=== PATIENT | male | born 1960 | race Caucasian/White ===

== ENCOUNTER 2017-03-27 00:55 | Emergency (ER) | payer MEDICARE, OTHER ==
[~2017-03-27 00:55] MED LIST: BACT800T5 PO; CALC0.25 PO; CEPH500 PO; CLON0.2T PO; DULC5TAB PO; LISI-363 PO; PRIL20CA PO; TOPR100T15 PO; VITA-13 PO; [UNRECOGNIZED DRUG - CODE] SQ
[2017-03-27 00:57] VITALS: BP 148/97; PULSE 75; RESP 16; TEMP 98.9; O2SAT 98
[2017-03-27] MEDS ORDERED: LISI-515 PO (02:18)
[2017-03-27] MEDS ORDERED: CHOL100025 CHEW (02:18)
[2017-03-27] MEDS ORDERED: CLON0.2T PO (02:18)
[2017-03-27] MEDS ORDERED: TOPR100T PO (02:18)
[2017-03-27] MEDS ORDERED: DULC5TAB PO (02:18)
[2017-03-27] MEDS ORDERED: SEVEL800 PO (02:18)
[2017-03-27] MEDS ORDERED: OMEP20TA PO (02:18)
[2017-03-27] MEDS ORDERED: CALC0.25 PO (02:18)
[2017-03-27] MEDS ORDERED: [UNRECOGNIZED DRUG - CODE] SQ (02:18)
--- NOTE | 2017-03-27 02:36 | PD ---
HPI Chief Complaint: Medical Clearance Time Seen by Provider: 02:10 Travel History International Travel<30 days: No Contact w/Intl Traveler<30days: No Traveled to known affect area: No History of Present Illness HPI The patient is a 56 year old male who presents to the [facility] emergency department with a history of right elbow pain and he reports began on Saturday morning when he awakened. He reports that he regularly plays golf, however he denies any known injury to his elbow. 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 He reports that the swelling is along the posterior aspect of the elbow. He reports that there is pain with full extension of the elbow. He denies having any fevers or chills. He reports that he had an AV fistula in the left upper extremity for hemodialysis, however he no longer receives hemodialysis. The patient reports that he was last seen regarding the aneurysm in his right arm by Dr. Su 2 weeks ago. He reports that he was told that the aneurysm is 2 cm and that they will wait until it is 4 cm before they attempt bypass and again. The patient is on peritoneal dialysis. He reports that he was able to complete half of his peritoneal dialysis today before he came in for evaluation. He last took Tylenol for the pain at 11 PM. On review of systems, the patient denies any cough, congestion, neck pain, chest pain, shortness of breath, abdominal pain, diarrhea, or neurologic symptoms. The patient reports that he does suffer with chronic intermittent vomiting. He reports that this usually occurs when he eats too close to administering his peritoneal dialysis. He denies having any worsening or recurrent vomiting. [facility] Past Medical History Narrative Medical The patient's past medical history is significant for chronic renal failure previously on hemodialysis. The patient did have a transplant in 1995 that unfortunately failed in 2009. The patient reports that he's been on peritoneal dialysis for the last 4 years. 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 Su, history of arthritis, hypertension, constipation Blood Disorders: No Dialysis: Yes Diminished Hearing: No Hypertension: Yes Renal Failure: Yes Past Surgical History Narrative Surgical The patient's past surgical history is significant for an AV fistula placement in the right upper extremity with multiple revisions and attempted bypass for aneurysm formation. The patient has a peritoneal dialysis catheter in place, history of coronary artery disease with bypass in March 2016, cholecystectomy, parathyroidectomy, renal transplant Arteriovenous Shunt: Yes (REMOVED 2014) Cardiac Surgery: Yes (BYPASS MARCH 2016) Cholecystectomy: Yes Other Surgery: Yes (parathyroidectomy/ fistula removed from right 2014) Social History Alcohol Use: No Tobacco Use: No Substance Use: No Allergies-Medications (Allergen,Severity, Reaction): Coded Allergies: Nortriptyline (Verified Allergy, Severe, 03/27/17) Reported Meds & Prescriptions Reported Meds & Active Scripts Active Reported Renvela (Sevelamer Carbonate) 800 Mg Tab 800 Mg PO TID Toprol XL (Metoprolol Succinate) 100 Mg Tab 100 Mg PO BID Omeprazole 20 Mg Tab 20 Mg PO DAILY Lisinopril 20 Mg Tab 20 Mg PO DAILY Epogen (Epoetin Tristan) 20,000 Unit/2 Ml Vial 30,000 SQ BIWEEKLY Clonidine (Clonidine HCl) 0.2 Mg Tab 0.2 Mg PO BID Vitamin D3 (Cholecalciferol) 1,000 Unit Chew 1,000 Units CHEW DAILY Calcitriol 0.25 Mcg Cap 0.25 Mcg PO 2XWEEK Dulcolax DR (Bisacodyl) 5 Mg Tabdr 5 Mg PO BID PRN Review of Systems Except as stated in HPI: all other systems reviewed are Neg General / Constitutional: No: Fever Eyes: No: Visual changes HENT: No: Headaches Cardiovascular: No: Chest Pain or Discomfort Respiratory: No: Shortness of Breath Gastrointestinal: No: Abdominal Pain Genitourinary: No: Dysuria Musculoskeletal: Positive: Myalgias, Arthralgias, Limited ROM, Edema, Pain Skin: No Rash Neurologic: No: Weakness Psychiatric: No: Depression Endocrine: No: Polydipsia Hematologic/Lymphatic: No: Easy Bruising Physical Exam Narrative General: The patient is a well-developed well-nourished male in no acute distress. Head and Neck exam: Head is normocephalic atraumatic. Eyes: EOMI, pupils are equal round and reactive to light. Nose: Midline septum with pink mucous membranes Mouth: Dentition unremarkable. Moist mucus membranes. Posterior oropharynx is not erythematous. No tonsillar hypertrophy. Uvula midline. Airway patent. Neck: No palpable lymphadenopathy. No nuchal rigidity. No thyromegaly. Cardiovascular: Regular rate and rhythm without murmurs, gallops, or rubs. Lungs: Clear to auscultation bilaterally. No wheezes, rhonchi, or rales. Abdomen: Soft, without tenderness to palpation in all 4 quadrants of the abdomen. No guarding, rebound, or rigidity. Normal bowel sounds are audible. No tenderness on palpation of McBurney's point. Negative Flores's sign. The patient has a peritoneal dialysis catheter in place in the right lower quadrant of the abdomen that appears to be in good repair without any around signs of infection or erythema. No drainage noted. Extremities: No clubbing, cyanosis, or edema. 2+ pulses in all 4 extremities. No calf tenderness on palpation. On examination of the area of interest, the right elbow the patient is noted to have an area of swelling along the medial aspect with a palpable pulse. The patient denies any swelling at this site. There is no significant tenderness at this site. There is no bruising or expanding hematoma. The patient on examination of the posterior aspect of the elbow is noted to have tenderness on palpation over the olecranon bursa. There is minimal swelling. There is no erythema or ecchymosis. The patient has full range of motion of the elbow, however with extension the patient reports having increased pain posteriorly. He has no pain with supination or pronation. No crepitus. Back: No costovertebral angle tenderness to palpation. Neurologic Exam: Grossly nonfocal. Skin Exam: No rash noted. Intact skin that is warm and dry. Data Data Last Documented VS Vital Signs Date Time Temp Pulse Resp B/P Pulse Ox O2 Delivery O2 Flow Rate FiO2 03/27/17 02:41 16 98 Room Air 03/27/17 00:57 98.9 75 148/97 Orders Electrocardiogram (03/27/17 02:12) Complete Blood Count With Diff (03/27/17 02:12) Comprehensive Metabolic Panel (03/27/17 02:12) Prothrombin Time / Inr (Pt) (03/27/17 02:12) Act Partial Throm Time (Ptt) (03/27/17 02:12) C-Reactive Protein (Crp) (03/27/17 02:12) Iv Access Insert/Monitor (03/27/17 02:12) Ecg Monitoring (03/27/17 02:12) Oximetry (03/27/17 02:12) Potassium Chloride (Kcl) (03/27/17 03:45) Elbow, Complete (4 Vws) (03/27/17 03:34) Ice/Cold Pack (03/27/17 03:34) Ct Elbow W/O Contrast (03/27/17 ) Acetaminophen (Tylenol) (03/27/17 03:45) Labs Laboratory Tests Test 03/27/17 02:37 White Blood Count 6.9 TH/MM3 Red Blood Count 3.19 MIL/MM3 Hemoglobin 10.2 GM/DL Hematocrit 29.9 % Mean Corpuscular Volume 93.7 FL Mean Corpuscular Hemoglobin 32.0 PG Mean Corpuscular Hemoglobin 34.2 % Concent Red Cell Distribution Width 16.4 % Platelet Count 176 TH/MM3 Mean Platelet Volume 7.5 FL Neutrophils (%) (Auto) 60.9 % Lymphocytes (%) (Auto) 23.2 % Monocytes (%) (Auto) 12.6 % Eosinophils (%) (Auto) 2.9 % Basophils (%) (Auto) 0.4 % Neutrophils # (Auto) 4.2 TH/MM3 Lymphocytes # (Auto) 1.6 TH/MM3 Monocytes # (Auto) 0.9 TH/MM3 Eosinophils # (Auto) 0.2 TH/MM3 Basophils # (Auto) 0.0 TH/MM3 CBC Comment DIFF FINAL Differential Comment Prothrombin Time 10.7 SEC Prothromb Time International 1.0 RATIO Ratio Activated Partial 28.2 SEC Thromboplast Time Sodium Level 138 MEQ/L Potassium Level 2.9 MEQ/L Chloride Level 98 MEQ/L Carbon Dioxide Level 28.2 MEQ/L Anion Gap 12 MEQ/L Blood Urea Nitrogen 42 MG/DL Creatinine 15.40 MG/DL Estimat Glomerular Filtration 3 ML/MIN Rate Random Glucose 87 MG/DL Calcium Level 7.3 MG/DL Protein Corrected Calcium 7.6 MG/DL Total Bilirubin 0.5 MG/DL Aspartate Amino Transf 11 U/L (AST/SGOT) Alanine Aminotransferase 14 U/L (ALT/SGPT) Alkaline Phosphatase 45 U/L C-Reactive Protein 1.59 MG/DL Total Protein 6.5 GM/DL Albumin 2.6 GM/DL MDM Medical Decision Making Medical Screen Exam Complete: Yes Emergency Medical Condition: Yes Medical Record Reviewed: Yes Differential Diagnosis Gout, versus arthritis, versus bursitis, versus septic joint Narrative Course During the course of the patients emergency department visit, the patients history, examination, and differential diagnosis were reviewed with the patient. The patient had IV access obtained and blood work sent for analysis. The patient states on a monitoring specialist with oximetry and blood pressure monitoring. An ECG was done on arrival. The patient's ECG reveals sinus rhythm with a heart rate of 64, marked left axis deviation is noted, right bundle branch block is noted, QRS duration is 158 ms, QTc is 490 ms. There is no acute ST segment elevation. T waves are inverted in V1, lead 3. A CT scan of the right elbow and x-ray of the right elbow has been ordered to further evaluate. The patient was initially provided Tylenol for pain as he reports that any other narcotic pain medication constipate him. m The patients laboratory studies were reviewed and remarkable for a a white count of 6.9, hemoglobin 10.2, platelets 176 with monocytes 12.6, CMP is remarkable for a potassium of 2.9, BUN 42, creatinine 15.4, calcium 7.3, glucose 87, AST 11, C-reactive protein 1.59, albumin 2.6. PT 10.7, PTT 28.2. The patient was given a small supplemented 20 mEq by mouth 1 as the patient will be going home to complete his peritoneal dialysis which could further decreased level. Radiology studies were reviewed and remarkable for an x-ray of the right elbow that shows no fracture or joint dislocation, CT scan of the right elbow reveals focal aneurysmal dilatation of the AV fistula site measuring 2.9 cm, bony structures are grossly intact, No other acute findings. The patient's symptoms are likely related to a bursitis versus gout. The patient has a history of renal failure, therefore anti-inflammatory pain medications would be contraindicated. I will prescribe a Medrol Dosepak taper. The patient will take Tylenol as needed for discomfort. The patient was instructed regarding the importance of close follow-up with his primary care physician in the next 2 days. The patient is resting comfortably and feels better, is alert and in no distress. The patients results and examination findings were discussed with the patient. The repeat examination is unremarkable and benign. The history, exam, diagnostic testing, and current condition do not suggest any significant pathology to warrant further testing, continued ED treatment, admission, or surgical evaluation at this point. The vital signs have been stable. The patient does not have uncontrollable pain, intractable vomiting, or other significant symptoms. The patient's condition is stable and appropriate for discharge. The patient will pursue further outpatient evaluation with a primary care physician or other designated or consulting physician as indicated in the discharge instructions. The patient expressed understanding and was agreeable with this plan. Diagnosis Primary Impression: Right elbow pain Referrals: Primary Care Physician 2 days Patient Instructions: Elbow Bursitis (ED), General Instructions Additional Instructions: The patient is instructed to take Tylenol as needed for discomfort as written on the package. Med/Other Pt SpecificInfo: Prescription(s) given Scripts Methylprednisolone Dosepak (Medrol Dosepak)4 Mg Dspk4 Mg PO DIRECTED #1 DSPK Ref 0 Per Pharmacist direction Prov:Mehnaz Hartmann MD 03/27/17 Disposition: 01 DISCHARGE HOME Condition: Stable Mehnaz Hartmann MD Mar 27, 2017 02:36
[2017-03-27 02:41] VITALS: RESP 16; O2SAT 98
[2017-03-27 02:51] LABS: AUTOMATED NEUTROPHIL # 4.2 TH/MM3 (1.8-7.7); BASOPHIL % 0.4 % (0.0-2.0); EOSINOPHIL # 0.2 TH/MM3 (0-0.4); EOSINOPHIL % 2.9 % (0.0-4.0); HEMATOCRIT 29.9 % (39.0-51.0); HEMO FLAGS DIFF FINAL; LYMPH % 23.2 % (9.0-44.0); LYMPHOCYTE # 1.6 TH/MM3 (1.0-4.8); MEAN CELL VOLUME 93.7 FL (80.0-100.0); MEAN CORPUSCULAR HGB CONC 34.2 % (32.0-36.0); MONO % 12.6 % (0.0-8.0); NEUT % 60.9 % (16.0-70.0); PLATELET COUNT 176 TH/MM3 (150-450); RED BLOOD COUNT 3.19 MIL/MM3 (4.50-5.90); RED CELL DISTRIBUTION WIDTH 16.4 % (11.6-17.2); WHITE BLOOD COUNT 6.9 TH/MM3 (4.0-11.0)
[2017-03-27 03:01] LABS: APTT (PATIENT) 28.2 SEC (24.3-30.1); PROTHROMBIN TIME - PATIENT 10.7 SEC (9.8-11.6)
[2017-03-27 03:06] LABS: BICARBONATE 28.2 MEQ/L (21.0-32.0); CALCIUM-PROTEIN CORRECTED 7.6 MG/DL (8.5-10.1); TOTAL BILIRUBIN ADULT 0.5 MG/DL (0.2-1.0)
[2017-03-27 03:19] LABS: POTASSIUM 2.9 MEQ/L (3.5-5.1)
[2017-03-27] MEDS ORDERED: ACETAMINOPHEN 325 MG TAB PO ONE (03:45)
[2017-03-27] MEDS ORDERED: POTASSIUM CHLORIDE 20 MEQ CONTROLLED RELEASE TAB PO ONE (03:45)
[2017-03-27 04:00] VITALS: BP 140/90; PULSE 70; RESP 18; O2SAT 98
--- NOTE | 2017-03-27 04:26 | RADRPT ---
EXAM DATE/TIME: 03/27/2017 03:47 [facility] COMPARISON: No previous studies available for comparison. INDICATIONS : Right elbow pain. MEDICAL HISTORY : Hypertension. Renal failure. Dialysis SURGICAL HISTORY : Cholecystectomy. AV fistula, right arm. Renal transplant. Parathyroidectomy ENCOUNTER: Initial ACUITY: 1 day PAIN SCORE: 9/10 LOCATION: Right upper extremity FINDINGS: Multiple view examination of the right elbow demonstrates no evidence of acute fracture or joint disl ocation. Postsurgical changes are seen in the soft tissues characteristic of an AV fistula. No defini te joint effusion. CONCLUSION: No acute fracture or joint dislocation. Edgar Castro MD on March 27, 2017 at 4:23 Board Certified Radiologist. This report was verified electronically.
--- NOTE | 2017-03-27 04:31 | RADRPT ---
EXAM DATE/TIME: 03/27/2017 04:07 [facility] COMPARISON: ELBOW RIGHT COMPLETE (4 VWS), March 27, 2017, 3:47. INDICATIONS : Patient has pain and swelling on right elbow, evaluate for aneurysm. RADIATION DOSE: 12.11 CTDIvol (mGy) MEDICAL HISTORY : Hypertension. Dialysis. Renal failure. SURGICAL HISTORY : None. AV fistula, right arm. ENCOUNTER: Initial ACUITY: 3 days PAIN SCALE: 6/10 LOCATION: Right elbow. TECHNIQUE: Volumetric scanning of the elbow was performed. Using automated exposure control and adjustment of t he mA and/or kV according to patient size, radiation dose was kept as low as reasonably achievable to obtain optimal diagnostic quality images. DICOM format image data is available electronically for r eview and comparison. FINDINGS: BONES: No evidence of fracture. Alignment is within normal limits. JOINTS: No evidence of joint narrowing or effusion. SOFT TISSUES: Postsurgical changes characteristic of an AV fistula. There is some focal dilatation of a vascular st ructure at the level of the antecubital fossa measuring 2.9 cm in diameter. The wall is partially zaire cified suggesting that this may be arterial aneurysmal dilatation. Calcified atherosclerotic changes are seen in the patient's [place] vessels. CONCLUSION: 1. Focal aneurysmal dilatation at the AV fistula site measuring 2.9 cm. 2. The bony structures are grossly intact. Edgar Castro MD on March 27, 2017 at 4:25 Board Certified Radiologist. This report was verified electronically.
[2017-03-27] MEDS ORDERED: MEDR4PAK PO (05:41)
--- NOTE | 2017-03-27 08:45 | EKG ---
Date Performed: 03/27/2017 Time Performed: 02:32:50 PTAGE: 56 years EKG: Sinus rhythm WITH FIRST DEGREE AV BLOCK MARKED LEFT AXIS DEVIATION RIGHT BUNDLE BRANCH BLOCK ABNORMAL ECG PREVIOUS TRACING : 08/10/2010 07.44 DOCTOR: Eliel Oconnor Interpretating Date/Time 03/27/2017 08:43:54
== END 2017-03-27 06:46 | disposition home or self-care (01) ==
LOC: NEPC 00:55
DX: M25.521 Pain in right elbow (principal); I45.10 Unspecified right bundle-branch block; I44.0 Atrioventricular block, first degree; R94.31 Abnormal electrocardiogram [ECG] [EKG]; I10 Essential (primary) hypertension; N19 Unspecified kidney failure; Z99.2 Dependence on renal dialysis; Z79.899 Other long term (current) drug therapy; Z88.8 Allergy status to other drugs, medicaments and biological substances
CPT/HCPCS: 73080; 73200; 80053; 85025; 85610; 85730; 86140; 93005; 99285

== ENCOUNTER 2017-06-24 11:16 | Day surgery (SDC) | payer MEDICARE, OTHER ==
[~2017-06-24 11:16] MED LIST changes: -BACT800T5 PO; -CEPH500 PO; +CHOL100025 CHEW; -LISI-363 PO; +LISI-515 PO; +MEDR4PAK PO; +OMEP20TA PO; -PRIL20CA PO; +SEVEL800 PO; +TOPR100T PO; -TOPR100T15 PO; -VITA-13 PO; +[UNRECOGNIZED DRUG - CODE] SQ; -[UNRECOGNIZED DRUG - CODE] SQ
[2017-06-24] MEDS ORDERED: IOHEXOL 350 MG/ML 100 ML BTL (for Cath Lab) OTHER ONE (11:17)
--- NOTE | 2017-06-24 12:18 | PD.VS.PN ---
Pre-operative Note Pre-operative diagnosis: R UE hematoma Planned procedure: R UE angiogram Interval History: Pt doing well, ready for surgery Labs: pending Blood: none needed Imaging: to make in OR Orders: NPO Post-operative destination: DOCU Operative site marked: Yes Consent: Informed consent has been obtained from Go Monet. I have explained the procedure in detail and discussed the risks, benefits, and potential complications. All questions have been answered. Cornel Osborn MD Jun 24, 2017 12:18
[2017-06-24] MEDS ORDERED: MIDAZOLAM HCL 2 MG/2 ML VIAL ONE (12:30)
[2017-06-24 12:31] LABS: AUTOMATED NEUTROPHIL # 5.3 TH/MM3 (1.8-7.7); BASOPHIL % 0.5 % (0.0-2.0); EOSINOPHIL # 0.3 TH/MM3 (0-0.4); EOSINOPHIL % 4.1 % (0.0-4.0); HEMATOCRIT 31.5 % (39.0-51.0); HEMO FLAGS DIFF FINAL; LYMPH % 21.3 % (9.0-44.0); LYMPHOCYTE # 1.8 TH/MM3 (1.0-4.8); MEAN CORPUSCULAR HEMOGLOBIN 31.8 PG (27.0-34.0); MEAN CORPUSCULAR HGB CONC 33.4 % (32.0-36.0); MONO % 10.4 % (0.0-8.0); NEUT % 63.7 % (16.0-70.0); PLATELET COUNT 257 TH/MM3 (150-450); RED BLOOD COUNT 3.32 MIL/MM3 (4.50-5.90); RED CELL DISTRIBUTION WIDTH 14.1 % (11.6-17.2); WHITE BLOOD COUNT 8.4 TH/MM3 (4.0-11.0)
[2017-06-24 12:35] VITALS: BP 142/96; PULSE 64; RESP 18; TEMP 98.2; O2SAT 99
[2017-06-24] MEDS ORDERED: HEPARIN-NS/PF INJ 1,000 ML ONE (12:35)
[2017-06-24 12:58] LABS: BICARBONATE 26.5 MEQ/L (21.0-32.0)
[2017-06-24 13:00] LABS: POTASSIUM 2.8 MEQ/L (3.5-5.1)
--- NOTE | 2017-06-24 13:07 | HHI.PR ---
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 Patent brachial-brachial bypass 2. Distal anastomotic pseudoaneurysm Complications: none Specimen(s) removed: none Estimated blood loss: 10mL Anesthesia: MAC Drains: None Patient to: Other (DOCU) Patient Condition: Good Implant/Devices: SEE IMPLANT LOG (if applicable) Date/Time of Procedure: SEE SURGICAL CARE RECORD Cornel Osborn MD Jun 24, 2017 13:07
--- NOTE | 2017-06-24 13:15 | CATHPROC ---
[employer] HIS Report Study Information Study Number Admission Scheduled Start Study Start [id number] Jun 24 2017 11:16AM 06/24/2017 Jun 24 2017 11:57AM [facility] Endovascular Study Admit Source Facility Department Other [facility] - Extract Operator Physician and Clinical Staff Initial Cornel Bowers Weblogic Administrator Tim Berrios,RN Recorder Janina Cevallos,RT(R) (BS) Scrub Dereck Sanchez,RT(R) Procedures Performed Procedure Location (Site) Vessel Name Aortic Arch Wire insertion Fem Art (right) Femoral Art Equipment Time Skin Care Consultant Description Size Mfg Part Number Used/Scraped [id number] 12:05 ANGIO-DYNAMICS OMNI FLUSH 65CM CATHETER FR 4 Used *[id number]- INTRODUCER SET, 12:05 [employer]. FR 5 SC-NT-U-SST Used MICROPUNCTURE, STIFFENED *[id number] *[id number] 12:59 DAIG/ST. FIOR MEDICAL ANGIOSEAL, FR6 VIP FR 6 Used *[id number] 12:05 Legal Shine INDUSTRIES PACK, CCL CUSTOM * Used *[id number] 12:05 MERIT MEDICAL PRESSURE TUBING 48" 48" [id number] Used [id number] 12:05 NAMIC TUBING, HIGH PRESSURE 20" 20" Used *[id number] 12:05 NYCOMED OMNIPAQUE, 300 MG, 150ML 150ML [id number] Used 12:05 [employer]COMED OMNIPAQUE, 300 MG, 50ML 50ML [id number] Used [id number] 12:05 [employer],WARM AIR CCL * Used *[id number] 12:05 TERUMO MEDICAL SHEATH, FR4 TERUMO (10CM) FR 4 Used *[id number] 12:44 TERUMO MEDICAL/LEILANI CATHETER, FR5 ANGLED 100CM FR 5 [id number] *[id number] Used WIRE, ANGLED GLIDE .035 [id number] 12:05 TERUMO MEDICAL/LEILANI 260CM Used 260CM *[id number] History: Allergies Allergy Reaction nortriptyline Medication Medication Total Dose (Bolus/Oral) Medication Total Dosage/Unit 1% XYLOCAINE 20 mL FENTANYL 50 mcg VERSED 2 mg Medications (Bolus/Oral) Medication Time Given Dosage/Unit Administered By Reason 06/24/2017 12:35:50 VERSED 2 mg Tim Berrios PM 2 mg VERSED given in lab by Tim Berrios RN in Left Antecubital via Peripheral IV. 06/24/2017 12:36:24 FENTANYL 25 mcg Tim Berrios PM 25 mcg FENTANYL given in lab by Tim Berrios RN in Left Antecubital via Peripheral IV. 06/24/2017 12:40:08 1% XYLOCAINE 20 mL Cornel Osborn PM 20 mL 1% XYLOCAINE given in lab by Cornel Osborn in Right Groin via Subcutaneous. 06/24/2017 12:45:38 FENTANYL 25 mcg Tim Berrios PM 25 mcg FENTANYL given in lab by Tim Berrios RN in Left Antecubital via Peripheral IV. Medication (Drip) Medication Time Given Dosage/Unit Concentration/Unit Diluent (ml) Solution 06/24/2017 12:20:01 IV Solutions 0 mL (IV) 500 NaCl .9 PM IV Solutions given in lab by Tim Berrios RN in Left Antecubital via Peripheral IV. Pump/Drip Flow = 20 ml/hr using NaCl .9. Initial Case Assessment Cardiovascular HR Rhythm NIBP 64 reg 146/97 Edema Present Skin color Skin None Normal Warm Dry Circulatory - Right Pulses Femoral 2 Scale (0,1,2,3,4,d) Scale (0,1,2,3,4,d) Circulatory - Lower Extremities Color Lower Right Color Lower Left Normal Normal Neurological State Oriented to time-place- Alert Moves all extremities person Respiration - General Respiration Rate SpO2 (%) (B/min) 17 100 Chronological Log Time Study Chronological Log 12:19:30 Patient arrived via Bed. 12:19:38 Patient Name, D.O.B, / Armband Verified By R.N. 12:19:40 Consent signed by the physician and the patient and verified by the Extract Operator staff. 12:19:44 Pre-op and post- op instructions given; patient acknowledges understanding of instructions. 12:19:45 Verbal Stimulation=2 Physical Stimulation=2 Airway=2 Respiration=2 TOTAL=8. (0=absent, 1=li mited, 2=present) 12:19:48 Presedation assessment performed by Extract Operator RN. 12:19:53 Patient has been NPO for More than 6Hrs. 12:19:54 Skin Breakdown none per pt 12:19:56 Patient Warmer Placed on the Table. 12:19:59 Fred Prominences Protected 12:20:00 A # 20 IV was noted in the Antecubital (left). Grade = 0 IV Solutions given in lab by Tim Berrios RN in Left Antecubital via Peripheral IV. Pump/Drip Flow = 20 ml/hr using 12:20:01 NaCl .9. 12:20:02 History and physical on the chart or being dictated. Assessment: Initial Case, HR=64 BPM, Rhythm=reg, XDWD=934/97 mmhg, Edema=None, Color=Normal, Sk in = Warm, Dry Right Pulses: Femoral=2 12:20:06 Lower Right Extremities: Color=Normal Lower Left Extremities: Color=Normal Neurological: State=Alert, Ox3, AMADOR Respiration: Resp=17 B/min, QbY0=303 % Vitals capture started with the following parameters, Patient=Adult, Interval=5 min, Initial Pr gxtena=487 mmHg, 12:26:22 Deflation Rate=5 mmHg Vitals capture started with the following parameters, Patient=Adult, Interval=5 min, Initial Pr anyjri=285 mmHg, 12:29:15 Deflation Rate=5 mmHg 12:29:49 HR=62 bpm, YKPV=182/97 mmhg, ItZ6=785.0 %, Resp=7 B/min, Pain=0, Yamel=10, Marroquin=2 12:32:32 Reference ECG taken 12:34:50 HR=63 bpm, EFKN=806/95 mmhg, QxS9=153.0 %, Resp=10 B/min, Pain=0, Yamel=10, Marroquin=2 12:35:25 Right groin prepped with 2% chlorhexidine, and draped after a 3 min. waiting time. 12:35:50 2 mg VERSED given in lab by Tim Berrios RN in Left Antecubital via Peripheral IV. 12:36:24 25 mcg FENTANYL given in lab by Tim Berrios RN in Left Antecubital via Peripheral IV. 12:39:53 HR=64 bpm, EGVV=762/93 mmhg, TyC2=614.0 %, Resp=15 B/min, Pain=0, Yamel=10, Marroquin=2 Time Out. Correct patient, correct procedure, correct physician, power injector loaded, with co ntrast with surgical team 12:39:57 present. Time Out Concurred by MD and individual staff in procedure. 12:40:06 Case Start 12:40:08 20 mL 1% XYLOCAINE given in lab by Cornel Osborn in Right Groin via Subcutaneous. 12:41:08 Access site was Right Femoral Artery. A INTRODUCER SET, MICROPUNCTURE, STIFFENED FR 5 was advanced into the Fem Art (right) using the 12:41:13 Percutaneous technique. A SHEATH, FR4 TERUMO (10CM) FR 4 was exchanged in the Fem Art (right). This was necessary in or elaine to 12:41:20 accomodate a larger catheter. A PIGTAIL STR. INFINITI CATHETER FR 5 was advanced over a wire. OMNIPAQUE, 300 MG, 150ML 150ML was used for 12:44:47 injections. 12:44:52 HR=61 bpm, WELV=285/94 mmhg, IhJ8=220.0 %, Resp=13 B/min, Pain=0, Yamel=10, Marroquin=2 12:45:38 25 mcg FENTANYL given in lab by Tim Berrios RN in Left Antecubital via Peripheral IV. Through a PIGTAIL STR. INFINITI CATHETER FR 5, The Aortic Arch was injected at 20 ml/sec for a total of 10 cc's of 12:46:03 contrast. 12:46:44 A WIRE, ANGLED GLIDE .035 260CM 260CM was inserted via Fem Art (right). After removing the current catheter a CATHETER, FR5 ANGLED 100CM FR 5 was advanced over a WIRE, ANGLED 12:47:15 GLIDE .035 260CM 260CM. 12:49:51 HR=58 bpm, XIPF=753/90 mmhg, ErP6=337.0 %, Resp=4 B/min, Pain=0, Yamel=10, Marroquin=2 12:54:34 Injections continued to right arm. 12:54:52 HR=64 bpm, OIVB=605/95 mmhg, DoY5=484.0 %, Resp=10 B/min, Pain=0, Yamel=10, Marroquin=2 12:58:02 Catheter was removed 12:58:43 ANGIOSEAL, FR6 VIP FR 6 placement in the Fem Art (right) 12:59:51 HR=71 bpm, GBJP=503/92 mmhg, SpO2=99.0 %, Resp=19 B/min, Pain=0, Yamel=10, Amrroquin=2 13:00:01 Case End 13:01:32 Sterile dressing applied to site 13:01:37 Catheter(s) removed without difficulty 13:02:38 No case complications noted. 13:02:40 Cine recording checked. 13:02:45 Bedside Report will be given. 13:02:46 Implantable Device card placed in patient's chart. 13:02:48 Contrast Scanned 13:06:58 Patient moved to stretcher End Study - Contrast Media Used In Study Contrast Total Opened (mL) Total Used (mL) Total Wasted (mL) Omnipaque 55 55 0 End Study - Radiation Exposure Fluoro Time (minutes) 5.0 End Study - Patient Disposition Complications Transferred To Interventional Outcome No Extract Operator Holding No attempt made
--- NOTE | 2017-06-25 08:36 | MP ---
cc: CORNEL OSBORN MD DATE OF SURGERY: 06/24/2017 PREOPERATIVE DIAGNOSIS Right upper extremity aneurysm, status post multiple arteriovenous fistulas. POSTOPERATIVE DIAGNOSIS Right upper extremity aneurysm, status post multiple arteriovenous fistulas. PROCEDURE 1. Thoracic aortogram. 2. Right upper extremity angiogram. 3. Right common femoral artery Angio-Seal. ATTENDING SURGEON Cornel Osborn. ANESTHESIA Local with sedation. INDICATIONS Mr. Monet is a young man who has multiple right upper extremity arteriovenous fistulas and apparently a brachial artery bypass done for what sounds like a bleeding pseudoaneurysm. He presents to my clinic with an obvious pseudoaneurysm that appears to be at his antecubital brachial artery. Because of his multiple right upper extremity surgeries a diagnostic angiogram is offered and performed in an effort to map his reconstructive options. There is no prior catheter-based imaging available for my review. DESCRIPTION OF PROCEDURE Informed consent was obtained from the patient. He was taken to the operating room and placed supine on the operating table. An appropriate timeout was taken to ensure the patient's identity, operative site and planned procedure. The administration of antibiotics was not necessary as this is a clean procedure without planned implantation of any foreign object. Everyone in the room agreed with the timeout and we proceeded. His bilateral groins are prepped and draped and right groin anesthetized with 1% lidocaine. A 21-gauge micropuncture needle was used to access the right common femoral artery. This was exchanged using Seldinger technique for a micropuncture sheath through which a 0.035 Glidewire was introduced. The micropuncture sheath was exchanged for a 5 Urdu sheath and the Glidewire was advanced to the ascending aorta. A pigtail catheter was placed over this and a thoracic aortogram was obtained. The Glidewire was introduced and the pigtail catheter was exchanged for a vertebral catheter and using the Glidewire and pigtail catheter we were able to navigate into the innominate, subclavian, axillary and proximal brachial arteries. A right upper extremity angiogram was obtained. The wire, catheter and sheath were removed and the groin was closed with Angio-Seal. There were no complications. I was present and scrubbed for the entire procedure. INTERPRETATION OF IMAGES The patient has patient three-vessel aortic arch without any hemodynamically significant stenoses. The patient's innominate, proximal, subclavian and axillary arteries are dilated but there is no hemodynamically significant stenoses. The patient appears to have a [id number] bypass with a distal brachial artery pseudoaneurysm. Distal to the pseudoaneurysm there is a segment of brachial artery before the brachial trifurcation. MD BINDU Diaz/JESSICA /9:21 PM /8:23 AM
== END 2017-06-24 16:00 | disposition home or self-care (01) ==
LOC: HDOC 11:16 → HDIC 11:17 → HDOC 16:00
PROVIDERS: ATTEND Surgery
DX: I72.1 Aneurysm of artery of upper extremity (principal); N18.6 End stage renal disease; I12.0 Hypertensive chronic kidney disease with stage 5 chronic kidney disease or end stage renal disease; Z99.2 Dependence on renal dialysis
CPT/HCPCS: 36217; 75605; 75716; 80048; 85025; C1760; C1769; C1887; C1893; G0269; J1644; J2250; J3010; Q9967

== ENCOUNTER → 2017-07-02 | Outpatient (CLI) | payer MEDICARE, OTHER ==
[~2017-07-02] MED LIST changes: +CALC667C PO; +CLON0.5T PO; +NIFE60TA58 PO
[2017-07-02 12:21] LABS: AUTOMATED NEUTROPHIL # 3.7 TH/MM3 (1.8-7.7); BASOPHIL % 0.6 % (0.0-2.0); EOSINOPHIL # 0.3 TH/MM3 (0-0.4); EOSINOPHIL % 4.8 % (0.0-4.0); HEMATOCRIT 28.7 % (39.0-51.0); HEMO FLAGS DIFF FINAL; LYMPH % 26.1 % (9.0-44.0); LYMPHOCYTE # 1.7 TH/MM3 (1.0-4.8); MEAN CELL VOLUME 94.8 FL (80.0-100.0); MEAN CORPUSCULAR HEMOGLOBIN 32.2 PG (27.0-34.0); MEAN CORPUSCULAR HGB CONC 33.9 % (32.0-36.0); MONO % 9.8 % (0.0-8.0); NEUT % 58.7 % (16.0-70.0); PLATELET COUNT 236 TH/MM3 (150-450); RED BLOOD COUNT 3.03 MIL/MM3 (4.50-5.90); RED CELL DISTRIBUTION WIDTH 13.7 % (11.6-17.2); WHITE BLOOD COUNT 6.3 TH/MM3 (4.0-11.0)
[2017-07-02 12:27] LABS: APTT (PATIENT) 28.6 SEC (24.3-30.1); PROTHROMBIN TIME - PATIENT 11.1 SEC (9.8-11.6)
[2017-07-02 12:32] LABS: BICARBONATE 27.5 MEQ/L (21.0-32.0); POTASSIUM 3.2 MEQ/L (3.5-5.1)
--- NOTE | 2017-07-02 12:52 | RADRPT ---
EXAM DATE/TIME: 07/02/2017 12:34 [place] COMPARISON: No previous studies available for comparison. INDICATIONS : Evaluate for pneumonia, pneumothorax or communicable disease. Pre op right upper extremity bypass. MEDICAL HISTORY : Hypertension. SURGICAL HISTORY : None. ENCOUNTER: Initial ACUITY: 1 day PAIN SCORE: 0/10 LOCATION: Bilateral chest FINDINGS: PA and lateral views of the chest demonstrate the lungs to be symmetrically aerated without evidence of mass, infiltrate or effusion. The cardiomediastinal contours are unremarkable. Osseous structure s are intact. CONCLUSION: No acute cardiopulmonary disease. Kurt Holley MD on July 02, 2017 at 12:50 Board Certified Radiologist. This report was verified electronically.
--- NOTE | 2017-07-02 22:13 | EKG ---
Date Performed: 07/02/2017 Time Performed: 11:39:10 PTAGE: 57 years EKG: Sinus rhythm WITH FIRST DEGREE AV BLOCK BORDERLINE LEFT AXIS DEVIATION RIGHT BUNDLE BRANCH BLOCK ABNORMAL ECG NO PREVIOUS TRACING DOCTOR: Angel Vidal Interpretating Date/Time 07/02/2017 22:12:27
== END ==
LOC: CPRE 11:16
PROVIDERS: ATTEND Surgery
DX: Z01.810 Encounter for preprocedural cardiovascular examination (principal); Z01.811 Encounter for preprocedural respiratory examination; Z01.812 Encounter for preprocedural laboratory examination; I72.1 Aneurysm of artery of upper extremity; N18.6 End stage renal disease; R94.31 Abnormal electrocardiogram [ECG] [EKG]
CPT/HCPCS: 36415; 71020; 80048; 85025; 85610; 85730; 86850; 86900; 86901; 93005

== ENCOUNTER 2017-07-04 06:24 | Inpatient (IN) | payer MEDICARE, OTHER ==
[~2017-07-04] VITALS: Ht 172.7 cm; Wt 81.0 kg
[2017-07-04] VITALS (8 sets, daily range): BP systolic 153–185; BP diastolic 94–115; PULSE 53–92; RESP 18–20; TEMP 97.5–98.4; O2SAT 97–98
[~2017-07-04 06:24] MED LIST changes: -CALC0.25 PO; -MEDR4PAK PO; -NIFE60TA58 PO; -SEVEL800 PO
[2017-07-04] MEDS ORDERED: INSULIN HUMAN REGULAR 1,000 UNITS/10 ML VIAL SQ PRN (06:45)
[2017-07-04] MEDS ORDERED: CHLORHEXIDINE GLUCONATE 2 % 1 PACK (2 CLOTHS) TOPICAL PRN (06:45)
[2017-07-04] MEDS ORDERED: METOPROLOL TARTRATE 25 MG TAB PO PRN (06:45)
[2017-07-04] MEDS ORDERED: SODIUM CHLORID 0.9% 500 ML IV PRN (06:45)
[2017-07-04] MEDS ORDERED: POVIDONE IODINE 5% (ANTISEPSIS KIT) 4 APPLICATIONS EACH NARE PRN (06:45)
[2017-07-04] MEDS ORDERED: LACTATED RINGER'S 1000 ML IV PRN (06:45)
[2017-07-04] MEDS ORDERED: NIFE60TA58 PO (06:57)
[2017-07-04] MEDS ORDERED: BUPIVACAINE HCL PF 0.5% 30 ML VIAL ONE (07:04)
[2017-07-04] MEDS ORDERED: PROTAMINE SULFATE 50 MG/5 ML VIAL ONE (07:04)
[2017-07-04] MEDS ORDERED: HEPARIN SODIUM - IV 10,000 UNITS/10 ML VIAL ONE (07:04)
[2017-07-04] MEDS ORDERED: THROMBIN (TOPICAL) 20,000 UNIT SPRAY KIT ONE (07:05)
[2017-07-04] MEDS ORDERED: VANCOMYCIN HCL 1000 MG VIAL ONE (07:05)
[2017-07-04] MEDS ORDERED: HEPARIN-NS/PF INJ 500 ML ONE (07:05)
--- NOTE | 2017-07-04 07:45 | HHI.HP ---
History of Present Illness Chief Complaint: R brachial artery pseudoaneurysm History of Present Illness 57 yo male with ESRD on PD and R brachial artery pseudoaneurysm. Growing but no ischemic symptoms. Past/Family/Social History Past Medical History ESRD HTN Past Surgical History Multiple R UE AVF and brachial bypasses PD catheter Social History former smoker Family History NC Home Medications Reported Medications Nifedipine ER 24 HR (Nifedipine ER 24 HR) 60 Mg Tab, 60 MG PO DAILY, TAB 0 Refills 07/04/17 Clonazepam (Clonazepam) 0.5 Mg Tab, 0.5 MG PO HS, #60 TAB 0 Refills 07/02/17 Calcium Acetate (Phosphate Bin (Calcium Acetate) 667 Mg Cap, 3 TAB PO TIDAC 07/02/17 Metoprolol Succinate ER 24 HR (Toprol XL) 100 Mg Tab, 100 MG PO BID, #30 TAB 0 Refills 03/27/17 Omeprazole (Omeprazole) 20 Mg Tab, 20 MG PO DAILY, #30 TAB 0 Refills 03/27/17 Lisinopril (Lisinopril) 20 Mg Tab, 20 MG PO HS, #30 TAB 0 Refills 03/27/17 Epoetin Tristan (Epogen) 20,000 Unit/2 Ml Vial, 09384 SQ BIWEEKLY 03/27/17 Clonidine (Clonidine) 0.2 Mg Tab, 0.2 MG PO BID for Blood Pressure Management, # 60 TAB 0 Refills 03/27/17 Cholecalciferol (Vitamin D3) 1,000 Unit Chew, 1000 UNITS CHEW DAILY for Nutritional Supplement, #1 BOTTLE 0 Refills 03/27/[address] (Dulcolax DR) 5 Mg Tabdr, 5 MG PO BID Y for CONSTIPATION, #30 TAB 0 Refills 03/27/17 Discontinued Reported Medications Sevelamer Carbonate (Renvela) 800 Mg Tab, 800 MG PO TID for Control phosphorous levels, #90 TAB 0 Refills 03/27/17 Calcitriol (Calcitriol) 0.25 Mcg Cap, 0.25 MCG PO 2XWEEK for Calcium Supplement , #30 CAP 0 Refills 03/27/17 Discontinued Scripts Methylprednisolone Dosepak (Medrol Dosepak) 4 Mg Dspk, 4 MG PO DIRECTED, #1 DSPK 0 Refills Per Pharmacist direction Prov:Mehnaz Hartmann MD 03/27/17 Coded Allergies: nortriptyline (Verified Allergy, Severe, Hallucinations, 07/04/17) Review of Systems Constitutional: DENIES: Fever, Chills Cardiovascular: DENIES: Chest pain Physical Exam Vitals/I&O Date Time Temp Pulse Resp B/P (MAP) Pulse Ox O2 Delivery O2 Flow Rate FiO2 07/04/17 06:59 97.8 72 18 160/103 (122) 100 Neuro: alert, AMADOR HEENT: NC/AT; anicteric sclera Neck: no JVD Heart: reg rate, no M Lungs: clear B Abdomen: soft, NT Vascular: palpable R UE brachial pseudoaneurysm Caprini VTE Risk Assessment Caprini VTE Risk Assessment: Mod/High Risk (score >= 2) Caprini Risk Assessment Model Point Value = 1 Point Value = 2 Point Value = 3 Point Value = 5 Age 41-60 Minor surgery BMI > 25 kg/m2 Swollen legs Varicose veins or History of unexplained or recurrent spontaneous Oral contraceptives or hormone replacement Sepsis (< 1 month) Serious lung disease, including pneumonia (< 1 month) Abnormal pulmonary function Acute myocardial infarction Congestive heart failure (< 1 month) History of inflammatory bowel disease Medical patient at bed rest Age 61-74 Arthroscopic surgery Major open surgery (> 45 min) Laparoscopic surgery (> 45 min) Malignancy Confined to bed (> 72 hours) Immobilizing plaster cast Central venous access Age >= 75 History of VTE Family history of VTE Factor V Leiden Prothrombin [id number] Lupus anticoagulant Anticardiolipin antibodies Elevated serum homocysteine Heparin-induced thrombocytopenia Other congenital or acquired thrombophilia Stroke (< 1 month) Elective arthroplasty Hip, pelvis, or leg fracture Acute spinal cord injury (< 1 month) Prophylaxis Regimen Total Risk Factor Score Risk Level Prophylaxis Regimen 0-1 Low Early ambulation 2 Moderate Order ONE of the following: *Sequential Compression Device (SCD) *Heparin 5000 units SQ BID 3-4 Higher Order ONE of the following medications: *Heparin 5000 units SQ TID *Enoxaparin/Lovenox 40 mg SQ daily (WT < 150 kg, CrCl > 30 mL/min) *Enoxaparin/Lovenox 30 mg SQ daily (WT < 150 kg, CrCl > 10-29 mL/min) *Enoxaparin/Lovenox 30 mg SQ BID (WT < 150 kg, CrCl > 30 mL/min) AND/OR *Sequential Compression Device (SCD) 5 or more Highest Order ONE of the following medications: *Heparin 5000 units SQ TID (Preferred with Epidurals) *Enoxaparin/Lovenox 40 mg SQ daily (WT < 150 kg, CrCl > 30 mL/min) *Enoxaparin/Lovenox 30 mg SQ daily (WT < 150 kg, CrCl > 10-29 mL/min) *Enoxaparin/Lovenox 30 mg SQ BID (WT < 150 kg, CrCl > 30 mL/min) AND *Sequential Compression Device (SCD) Assessment and Plan Plan R UE brachial aneurysm repair (interposition graft) PACU post-op Discharge Planning [place] [phone] Cornel Osborn MD Jul 04, 2017 07:45
[2017-07-04] MEDS ORDERED: ACETAMINOPHEN 1000 MG/100 ML 100 ML IV ONE (07:49)
[2017-07-04] MEDS ORDERED: MIDAZOLAM HCL 2 MG/2 ML VIAL ONE (07:49)
[2017-07-04] MEDS ORDERED: FAMOTIDINE 20 MG/2 ML VIAL ONE (07:49)
[2017-07-04] MEDS ORDERED: HYDROmorphone HCL 2 MG TAB PO PRN (08:00)
[2017-07-04] MEDS ORDERED: MORPHINE SULFATE 4 MG/ML INJ IV PUSH PRN (08:00)
[2017-07-04] MEDS ORDERED: METOPROLOL TARTRATE 100 MG TAB PO ONE (08:00)
[2017-07-04] MEDS ORDERED: BISACODYL EC 5 MG TABEC PO PRN (08:00)
[2017-07-04] MEDS ORDERED: SODIUM CHLOR 0.9% 250 ML INJ 250 ML ONE (08:54)
--- NOTE | 2017-07-04 10:45 | HHI.PR ---
Immediate Post Op Note Procedure Date: Jul 04, 2017 Pre Op Diagnosis: R brachial pseudoaneurysm Post Op Diagnosis: R brachial pseudoaneurysm Surgeon: Cornel Osborn [place]ault Person(s): Dmitry Gould Procedure: R brachial artery pseudoaneurysm repair with interposition graft (R basilic vein ) Findings: distal anastomotic pseudoaneurysm Additional Information: palpable radial and ulnar pulses at end of case Complications: none apparent Specimen(s) removed: R brachial pseudoaneurysm - not for pathology Estimated blood loss: 75mL Anesthesia: General Drains: None Fluids: 450mL IVF Patient to: PACU Patient Condition: Good Date/Time of Procedure: SEE SURGICAL CARE RECORD Cornel Osborn MD Jul 04, 2017 10:45
[2017-07-04] MEDS ORDERED: *morphine SULFATE 8 MG/ML PERIprocedure ONLY ONE ×2 (11:16→11:37)
[2017-07-04] MEDS ORDERED: DO NOT ADM ANY ANTICOAGULANT DRUGS PRN (11:30)
[2017-07-04] MEDS ORDERED: *HYDROmorphone PF 1 MG VIAL PERIprocedural Use ONLY ONE ×2 (11:50→12:05)
[2017-07-04] MEDS ORDERED: *LABETALOL HCL 100 MG/20 ML VIAL PERIprocedural Use ONLY ONE (12:10)
[2017-07-04] MEDS ORDERED: *ENALAPRILAT 1.25 MG/ML VIAL PERIprocedural Use ONLY ONE (12:12)
[2017-07-04] MEDS ORDERED: hydrALAZINE HCL 20 MG/ML VIAL ONE (13:02)
[2017-07-04] MEDS ORDERED: METOPROLOL TARTRATE 5 MG/5 ML VIAL IV PUSH PRN (13:30)
[2017-07-04] MEDS ORDERED: HEPARIN SODIUM - IV 10,000 UNITS/10 ML VIAL XX PRN (14:00)
[2017-07-04] MEDS ORDERED: SODIUM CHLORIDE 0.9% FLUSH 10 ML FLUSH IV FLUSH PRN (14:00)
[2017-07-04 14:09] LABS: BICARBONATE 26.2 MEQ/L (21.0-32.0); POTASSIUM 3.2 MEQ/L (3.5-5.1)
[2017-07-04] MEDS ORDERED: NIFEdipine 60 MG SUSTAINED RELEASE TAB PO ONE (14:30)
--- NOTE | 2017-07-04 14:43 | PD.CONS ---
HPI Service Nephrology Consult Requested By Dr. Osborn Reason for Consult ESRD Primary Care Physician Ijeoma Tuttle M.D. History of Present Illness 57 year old male with ESRD, Hypertension, admitted for Aneurysm repair right arm AVF, this was done, he has hypertensive urgency and was in ICU, he is awake denies CP, SOB, dizziness. patient does Peritoneal dialysis at night , on 1.25%/ 2.5% 2 L fill volumes, 7 cycles 12 hrs with 2 L midday exchange. Review of Systems Constitutional: COMPLAINS OF: Fatigue Musculoskeletal: COMPLAINS OF: Joint pain, Muscle aches Past Family Social History Allergies: Coded Allergies: nortriptyline (Verified Allergy, Severe, Hallucinations, 07/04/17) Past Medical History Hypertension ESRD AVF PD catheter Anemia HPTH Past Surgical History AVF Tenkhoff catheter Reported Medications Nifedipine SR 60 mg daily Clonidine 0.2 mg BID Toprol XL 100 mg bid Lisinopril 20 mg daily Klonipin0.5 mg q hs Epogen 8000 units twice a month Omeprazole 20 mg daily PhosLo 667 mg 3 TID with meals Active Ordered Medications Current Medications Medications (Trade) Dose Ordered Sig/Kike Route Start Time Stop Time Status Last Admin Lactated Ringer's 1,000 ml @ 30 mls/hr Q24H PRN IV 07/04/17 06:45 07/07/17 06:44 Sodium Chloride 500 ml @ 30 mls/hr [id number] PRN IV 07/04/17 06:45 07/07/17 06:44 07/04/17 07:00 (Lopressor) 25 mg INSIGHTS STRATEGIST PRN PO 07/04/17 06:45 07/07/17 06:44 (Betadine 5% Antisepsis Kit) 1 applic INSIGHTS STRATEGIST PRN EACH NARE 07/04/17 06:45 07/07/17 06:44 07/04/17 07:00 (Chlorhexidine 2% Cloth) 3 pack INSIGHTS STRATEGIST PRN TOPICAL 07/04/17 06:45 07/07/17 06:44 07/04/17 06:00 (NovoLIN R INJ) See Protocol Table ... INSIGHTS STRATEGIST PRN SQ 07/04/17 06:45 07/07/17 06:44 (Roxicodone) 5 mg Q4H PRN PO 07/04/17 08:00 (Dilaudid) 2 mg Q4H PRN PO 07/04/17 08:00 (Morphine Inj) 2 mg Q1H PRN IV PUSH 07/04/17 08:00 (Heparin Inj) 5,000 units Q8H SQ 07/05/17 10:00 (Dulcolax Ec) 5 mg BID PRN PO 07/04/17 08:00 (Phoslo) 2,001 mg TIDAC PO 07/04/17 12:00 (Vitamin D3) 1,000 units DAILY PO 07/04/17 09:00 (KlonoPIN) 0.5 mg HS PO 07/04/17 21:00 (Catapres) 0.2 mg BID PO 07/04/17 09:00 (Prinivil) 20 mg HS PO 07/04/17 21:00 (Toprol Xl) 100 mg BID PO 07/04/17 09:00 (Procardia Xl) 60 mg DAILY PO 07/04/17 09:00 (Protonix) 20 mg DAILY PO 07/04/17 09:00 (Aspirin) 325 mg DAILY PO 07/04/17 09:00 Miscellaneous Information ALL NURSING DEPARTME... UNSCH PRN .XX 07/04/17 11:30 07/05/17 11:29 (Lopressor Inj) 10 mg Q2H PRN IV PUSH 07/04/17 13:30 UNV (Apresoline Inj) 10 mg Q3H PRN IV PUSH 07/04/17 13:30 (Heparin Inj) 1,000 units WITH DIALYSIS PRN XX 07/04/17 14:00 (NS Flush) 10 ml UNSCH PRN IV FLUSH 07/04/17 14:00 Family History noncontributory Social History denies smoking or ETOH used to smoke in past Physical Exam Vital Signs Vital Signs Date Time Temp Pulse Resp B/P (MAP) Pulse Ox O2 Delivery O2 Flow Rate FiO2 07/04/17 13:30 69 18 153/97 (115) 98 07/04/17 13:15 53 18 161/94 (116) 97 07/04/17 13:10 97.5 55 18 185/104 (131) 97 07/04/17 12:55 54 14 172/98 (122) 100 Nasal Cannula 2 07/04/17 12:45 53 14 175/104 (127) 100 Nasal Cannula 2 07/04/17 12:35 14 07/04/17 12:30 54 14 178/107 (130) 100 Nasal Cannula 2 07/04/17 12:20 16 07/04/17 12:15 55 14 183/106 (131) 100 Nasal Cannula 2 07/04/17 12:00 56 14 181/103 (129) 100 Nasal Cannula 2 07/04/17 11:45 63 14 175/102 (126) 100 Nasal Cannula 2 07/04/17 11:42 14 07/04/17 11:30 61 14 182/102 (128) 100 Nasal Cannula 2 07/04/17 11:21 16 07/04/17 11:15 76 14 166/103 (124) 100 Nasal Cannula 2 07/04/17 11:09 97.5 82 14 157/89 (111) 100 Nasal Cannula 4 07/04/17 06:59 97.8 72 18 160/103 (122) 100 Physical Exam GENERAL: Well-nourished, well-developed patient. SKIN: Warm and dry. HEAD: Normocephalic. EYES: No scleral icterus. No injection or drainage. NECK: Supple, trachea midline. No JVD or lymphadenopathy. CARDIOVASCULAR: Regular rate and rhythm without murmurs, gallops, or rubs. RESPIRATORY: Breath sounds equal bilaterally. No accessory muscle use. GASTROINTESTINAL: Abdomen soft, non-tender, nondistended. PD catheter in place. EXTREMITIES: No cyanosis, or edema. AVF Rt arm incision dry. NEUROLOGICAL: Awake, alert, and oriented x 3. Non-focal. Laboratory Laboratory Tests Test 07/04/17 13:30 Blood Urea Nitrogen 38 Creatinine 13.78 Random Glucose 115 Calcium Level 8.3 Sodium Level 139 Potassium Level 3.2 Chloride Level 100 Carbon Dioxide Level 26.2 Anion Gap 13 Estimat Glomerular Filtration Rate 4 Result Diagram: 07/04/17 1330 Assessment and Plan Problem List: (1) ESRD (end stage renal disease) on dialysis ICD Codes: N18.6 - End stage renal disease; Z99.2 - Dependence on renal dialysis Plan: he will get his PD treatment at Hospital orders given continue to replace K BP control (2) Hypertension ICD Codes: I10 - Essential (primary) hypertension Plan: give Nifedipine SR 60 now (3) Right elbow pain ICD Codes: M25.521 - Pain in right elbow Status: Acute Plan: post surgery Aneurysm repair Sandy Adhikari MD Jul 04, 2017 14:43
[2017-07-04] MEDS: CALCIUM ACETATE 667 MG CAP PO SCH (17:00)
[2017-07-04] MEDS: hydrALAZINE HCL 20 MG/ML VIAL IV PUSH PRN ×2 (18:06→23:15)
[2017-07-04] MEDS ORDERED: ONDANSETRON HCL 4 MG/2 ML VIAL ONE (19:07)
[2017-07-04] MEDS: ONDANSETRON HCL 4 MG/2 ML VIAL IV PUSH PRN (19:10)
[2017-07-04] MEDS: cloNIDine HCL 0.2 MG TAB PO SCH (21:00)
[2017-07-04] MEDS: METOPROLOL SUCCINATE 50 MG EXTENDED RELEASE TAB PO SCH (21:00)
[2017-07-04] MEDS: POTASSIUM CHLORIDE 8 MEQ CONTROLLED RELEASE TAB PO SCH (21:00)
[2017-07-04] MEDS: clonazePAM 0.5 MG TAB PO SCH (21:00)
[2017-07-04] MEDS: LISINOPRIL 20 MG TAB PO SCH (21:00)
--- NOTE | 2017-07-04 21:49 | MP ---
cc: BLANE OSBORN MD DATE OF SURGERY 07/04/17 PREOPERATIVE DIAGNOSIS Right brachial artery pseudoaneurysm status post brachial artery bypass. POSTOPERATIVE DIAGNOSIS Right brachial artery pseudoaneurysm status post brachial artery bypass. PROCEDURE Repair of right brachial artery pseudoaneurysm with bypass from the previous bypass graft to his distal brachial artery using reverse basilic vein MEDICATIONS Prosper Osborn MD HEATER TENDER SURGEON Margarita Gould. ANESTHESIA General INDICATIONS Mr. Monet is a 57-year gentleman with end-stage renal disease and currently dialyzing through peritoneal dialysis. He has prior right upper extremity arteriovenous fistula and apparently had some sort of spermatic pseudoaneurysm and this was repaired with an axillary brachial bypass. The distal aspect of this has become pseudoaneurysmal with obvious about a 4-5 cm mass in his antecubitum and he was taken to the operating room for resection and definitive repair. PROCEDURE IN DETAIL Informed consent was obtained from the patient. He was taken to the operating room and placed supine on the operating table. Appropriate time-out was taken to ensure the patient identity and planned procedure. The administration of 1 gram of vancomycin was initiated prior to skin incision, will be discontinued after single preoperative dose. Everyone in the room agreed with time-out and we proceeded. His right arm and left leg were prepped and draped. Incision was made over the medial aspect of the distal upper arm, carried down to subcutaneous tissue with electrocautery. The previous bypass graft was encircled with a vessel loop. We then made an incision distal to the pseudoaneurysm and with a 10 Musa carried down to subcutaneous tissue with electrocautery. The basilic vein was identified and dissected free along the medial aspect of the incision. The skin over top of the aneurysm was then opened with a 10 blade. The entire basilic vein was dissected free for about 7 inches. The distal brachial artery was identified and encircled with vessel loop. The entire pseudoaneurysm capsule was then carefully dissected free. The patient was systemically heparinized with 3000 units of IV heparin. Proximal control of the previous bypass and distal control was the brachial artery. This was obtained with profunda clamps and a pseudoaneurysm was resected. The vein was clamped proximally and distally with right-angle clamps, marked for orientation and resected. The proximal distal ends were oversewn with 3-0 silk and hemoclip. The vein was flushed and rendered hemostatic. It was then spatulated and sewn end-to-end proximally and end to end distally, both using 5-0 Prolene suture. At the completion, it was flushed and noted to be hemostatic. There was a nice palpable pulse in the wrist. The wound was irrigated and made hemostatic. The heparin was reversed with protamine. The wound was closed with 2-0 Polysorb, 3-0 Polysorb, 4-0 Monocryl. The sponge counts were correct at the end of the case. I was present and scrubbed for the entire procedure. MD BINDU Diaz/ /2:11 PM /9:29 PM MTDLorraine
[2017-07-05] VITALS (12 sets, daily range): BP systolic 102–152; BP diastolic 65–96; PULSE 62–94; RESP 16–20; TEMP 97.5–98.3; O2SAT 94–99
[2017-07-05 05:25] LABS: HEMATOCRIT 31.2 % (39.0-51.0); MEAN CELL VOLUME 95.1 FL (80.0-100.0); MEAN CORPUSCULAR HEMOGLOBIN 31.4 PG (27.0-34.0); PLATELET COUNT 248 TH/MM3 (150-450); RED BLOOD COUNT 3.28 MIL/MM3 (4.50-5.90); RED CELL DISTRIBUTION WIDTH 13.7 % (11.6-17.2); REVIEW FLAG FINAL; WHITE BLOOD COUNT 12.7 TH/MM3 (4.0-11.0)
[2017-07-05 05:56] LABS: BICARBONATE 25.8 MEQ/L (21.0-32.0); POTASSIUM 3.3 MEQ/L (3.5-5.1)
[2017-07-05] MEDS: SODIUM CHLOR 0.45% 1000 ML INJ 1,000 ML IV SCH (06:00)
--- NOTE | 2017-07-05 07:17 | PD.VS.PN ---
Subjective POD #: 1 Procedure(s): R UE brachial artery pseudoaneurysm repair (interposition bypass with basilic vein) Subjective/Hospital Course Persistent nausea overnight. No abdominal pain and no diaphoresis. On PD now per routine. Objective Vitals/I&O Date Time Temp Pulse Resp B/P (MAP) Pulse Ox O2 Delivery O2 Flow Rate FiO2 07/05/17 03:00 85 07/05/17 03:00 98.3 86 20 151/96 (114) 98 07/05/17 03:00 98 Nasal Cannula 2.00 07/04/17 23:00 98 Nasal Cannula 2.00 07/04/17 23:00 98.3 92 20 170/115 (133) 98 07/04/17 23:00 90 07/04/17 21:45 98 Nasal Cannula 2.00 07/04/17 20:16 18 07/04/17 20:00 97.6 73 20 169/107 (127) 97 07/04/17 20:00 97 Nasal Cannula 2.00 07/04/17 19:00 79 07/04/17 16:34 16 07/04/17 15:00 98.4 77 18 159/107 (124) 98 07/04/17 15:00 76 07/04/17 13:30 69 18 153/97 (115) 98 07/04/17 13:15 53 18 161/94 (116) 97 07/04/17 13:10 97.5 55 18 185/104 (131) 97 07/04/17 13:10 58 07/04/17 12:55 54 14 172/98 (122) 100 Nasal Cannula 2 07/04/17 12:45 53 14 175/104 (127) 100 Nasal Cannula 2 07/04/17 12:35 14 07/04/17 12:30 54 14 178/107 (130) 100 Nasal Cannula 2 07/04/17 12:20 16 07/04/17 12:15 55 14 183/106 (131) 100 Nasal Cannula 2 07/04/17 12:00 56 14 181/103 (129) 100 Nasal Cannula 2 07/04/17 11:45 63 14 175/102 (126) 100 Nasal Cannula 2 07/04/17 11:42 14 07/04/17 11:30 61 14 182/102 (128) 100 Nasal Cannula 2 07/04/17 11:21 16 07/04/17 11:15 76 14 166/103 (124) 100 Nasal Cannula 2 07/04/17 11:09 97.5 82 14 157/89 (111) 100 Nasal Cannula 4 07/05/17 07/05/17 07/05/17 07:00 15:00 23:00 Intake Total 720 ml Output Total 850 ml Balance -130 ml Exam: R UE incision intact. Palpable radial pulse Abdomen slightly distended but fluid indwelling (PD). Not tender. Laboratory Laboratory Tests Test 07/04/17 13:30 07/05/17 04:23 Blood Urea Nitrogen 38 40 Creatinine 13.78 14.35 Random Glucose 115 109 Calcium Level 8.3 8.7 Sodium Level 139 137 Potassium Level 3.2 3.3 Chloride Level 100 96 Carbon Dioxide Level 26.2 25.8 Anion Gap 13 15 Estimat Glomerular Filtration Rate 4 4 White Blood Count 12.7 Red Blood Count 3.28 Hemoglobin 10.3 Hematocrit 31.2 Mean Corpuscular Volume 95.1 Mean Corpuscular Hemoglobin 31.4 Mean Corpuscular Hemoglobin Concent 33.0 Red Cell Distribution Width 13.7 Platelet Count 248 Mean Platelet Volume 7.5 Assessment and Plan Plan POD#1 s/p R UE pseudoaneurysm repair. Zofran for nausea. If persists midday after PD will get KUB. OOB TC Transfer to [facility]. Appreciate renal recs. Discharge Planning likely Sat Cornel Osborn MD Jul 05, 2017 07:17
[2017-07-05] MEDS: CALCIUM ACETATE 667 MG CAP PO SCH ×3 (08:00→17:00)
[2017-07-05] MEDS: CHOLECALCIFEROL (VIT D3) 1000 UNIT TAB PO SCH (09:00)
[2017-07-05] MEDS: METOPROLOL SUCCINATE 50 MG EXTENDED RELEASE TAB PO SCH ×2 (09:00→21:00)
[2017-07-05] MEDS: ASPIRIN 325 MG TAB PO SCH (09:00)
[2017-07-05] MEDS: POTASSIUM CHLORIDE 8 MEQ CONTROLLED RELEASE TAB PO SCH ×2 (09:00→21:02)
[2017-07-05] MEDS: PANTOPRAZOLE SOD 20 MG DELAYED RELEASE TAB PO SCH (09:00)
[2017-07-05] MEDS: cloNIDine HCL 0.2 MG TAB PO SCH ×2 (09:00→21:00)
[2017-07-05] MEDS: NIFEdipine 60 MG SUSTAINED RELEASE TAB PO SCH (09:00)
[2017-07-05] MEDS: HEPARIN SODIUM - SQ 10,000 UNITS/ML VIAL SQ SCH ×2 (09:43→17:45)
--- NOTE | 2017-07-05 11:43 | HHI.NPPN ---
Subjective History of Present Illness 57 year old male with ESRD HTN Pseudoaneurysm repair Additional Remarks nausea/vomiting Objective Data Data Vital Signs Date Time Temp Pulse Resp B/P (MAP) Pulse Ox O2 Delivery O2 Flow Rate FiO2 07/05/17 11:00 97.9 91 16 152/89 (110) 97 07/05/17 11:00 85 07/05/17 11:00 97 Nasal Cannula 2.00 07/05/17 07:14 98 Nasal Cannula 2.00 07/05/17 07:00 98 Nasal Cannula 2.00 07/05/17 07:00 76 07/05/17 07:00 97.5 74 16 140/86 (104) 94 07/05/17 03:00 85 07/05/17 03:00 98.3 86 20 151/96 (114) 98 07/05/17 03:00 98 Nasal Cannula 2.00 07/04/17 23:00 98 Nasal Cannula 2.00 07/04/17 23:00 98.3 92 20 170/115 (133) 98 07/04/17 23:00 90 07/04/17 21:45 98 Nasal Cannula 2.00 07/04/17 20:16 18 07/04/17 20:00 97.6 73 20 169/107 (127) 97 07/04/17 20:00 97 Nasal Cannula 2.00 07/04/17 19:00 79 07/04/17 16:34 16 07/04/17 15:00 98.4 77 18 159/107 (124) 98 07/04/17 15:00 76 07/04/17 13:30 69 18 153/97 (115) 98 07/04/17 13:15 53 18 161/94 (116) 97 07/04/17 13:10 97.5 55 18 185/104 (131) 97 07/04/17 13:10 58 07/04/17 12:55 54 14 172/98 (122) 100 Nasal Cannula 2 07/04/17 12:45 53 14 175/104 (127) 100 Nasal Cannula 2 07/04/17 12:35 14 07/04/17 12:30 54 14 178/107 (130) 100 Nasal Cannula 2 07/04/17 12:20 16 07/04/17 12:15 55 14 183/106 (131) 100 Nasal Cannula 2 07/04/17 12:00 56 14 181/103 (129) 100 Nasal Cannula 2 07/04/17 11:45 63 14 175/102 (126) 100 Nasal Cannula 2 07/04/17 11:42 14 -: 07/05/[id number]/05/17422 Physical Exam General Appearance: Well Developed, Well Nourished Neck Neck Exam: Neck Supple Pulmonary Resp Exam: Clear Bilaterally, Breath Sounds Equal Cardiology CV Exam: Regular, Normal Sinus Rhythm Gastrointestinal/Abdomen GI Exam: Soft, Non-Tender, Bowel Sounds Present Extremeties Extremities Exam: No Edema Assessment/Plan Problem List: (1) ESRD (end stage renal disease) on dialysis ICD Codes: N18.6 - End stage renal disease; Z99.2 - Dependence on renal dialysis Plan: he has PD started last night dialysis on going need Ensure continue to replace K BP control (2) Hypertension ICD Codes: I10 - Essential (primary) hypertension Plan: give Nifedipine SR 60 now (3) Right elbow pain ICD Codes: M25.521 - Pain in right elbow Status: Acute Plan: post surgery Aneurysm repair Sandy Adhikari MD Jul 05, 2017 11:43
[2017-07-05] MEDS: LISINOPRIL 20 MG TAB PO SCH (21:00)
[2017-07-05] MEDS: clonazePAM 0.5 MG TAB PO SCH (21:02)
[2017-07-05] MEDS: ONDANSETRON HCL 4 MG/2 ML VIAL IV PUSH PRN (21:31)
[2017-07-06] VITALS (14 sets, daily range): BP systolic 127–140; BP diastolic 82–85; PULSE 66–88; RESP 16; TEMP 98–98.2; O2SAT 97–99
[2017-07-06] MEDS: HEPARIN SODIUM - SQ 10,000 UNITS/ML VIAL SQ SCH ×2 (03:03→09:16)
[2017-07-06 05:09] LABS: HEMATOCRIT 26.8 % (39.0-51.0); MEAN CELL VOLUME 94.4 FL (80.0-100.0); MEAN CORPUSCULAR HEMOGLOBIN 32.1 PG (27.0-34.0); PLATELET COUNT 227 TH/MM3 (150-450); RED BLOOD COUNT 2.84 MIL/MM3 (4.50-5.90); RED CELL DISTRIBUTION WIDTH 13.9 % (11.6-17.2); REVIEW FLAG FINAL; WHITE BLOOD COUNT 8.4 TH/MM3 (4.0-11.0)
[2017-07-06 05:28] LABS: BICARBONATE 26.5 MEQ/L (21.0-32.0); POTASSIUM 3.5 MEQ/L (3.5-5.1)
[2017-07-06] MEDS: SODIUM CHLOR 0.45% 1000 ML INJ 1,000 ML IV SCH (06:07)
[2017-07-06] MEDS: CALCIUM ACETATE 667 MG CAP PO SCH ×2 (08:00→12:00)
[2017-07-06] MEDS: METOPROLOL SUCCINATE 50 MG EXTENDED RELEASE TAB PO SCH (09:15)
[2017-07-06] MEDS: POTASSIUM CHLORIDE 8 MEQ CONTROLLED RELEASE TAB PO SCH (09:15)
[2017-07-06] MEDS: ASPIRIN 325 MG TAB PO SCH (09:15)
[2017-07-06] MEDS: CHOLECALCIFEROL (VIT D3) 1000 UNIT TAB PO SCH (09:15)
[2017-07-06] MEDS: PANTOPRAZOLE SOD 20 MG DELAYED RELEASE TAB PO SCH (09:15)
[2017-07-06] MEDS: NIFEdipine 60 MG SUSTAINED RELEASE TAB PO SCH (09:15)
[2017-07-06] MEDS: cloNIDine HCL 0.2 MG TAB PO SCH (09:16)
--- NOTE | 2017-07-06 12:00 | PD.VS.PN ---
Subjective POD #: 2 Procedure(s): R UE brachial artery pseudoaneurysm repair (interposition bypass with basilic vein) Subjective/Hospital Course Nausea resolved Ashkan breakfast R UE feels fine - hasn't needed pain meds even On PD now per routine. Objective Vitals/I&O Date Time Temp Pulse Resp B/P (MAP) Pulse Ox O2 Delivery O2 Flow Rate FiO2 07/06/17 07:50 98.2 82 16 140/85 (103) 98 07/06/17 06:12 87 07/06/17 05:07 83 07/06/17 04:14 88 07/06/17 03:17 97 Room Air 07/06/17 03:17 78 07/06/17 03:17 98.0 75 16 136/84 (101) 97 07/06/17 02:36 77 07/06/17 01:00 66 07/05/17 23:52 99 Room Air 07/05/17 23:52 97.8 94 17 102/67 (79) 99 07/05/17 23:50 62 07/05/17 22:00 94 07/05/17 21:15 95 21 07/05/17 21:00 78 07/05/17 20:00 86 07/05/17 19:20 95 Room Air 07/05/17 19:20 78 07/05/17 19:20 97.5 68 18 107/65 (79) 95 07/05/17 15:00 74 07/05/17 15:00 95 Room Air 07/05/17 15:00 98.1 79 16 124/79 (94) 95 07/06/17 07/06/17 07/06/17 07:00 15:00 23:00 Intake Total 680 ml Output Total 1000 ml Balance -320 ml Exam: R UE incision ok Palpable pulses at wrist Laboratory Laboratory Tests Test 07/06/17 04:38 White Blood Count 8.4 Red Blood Count 2.84 Hemoglobin 9.1 Hematocrit 26.8 Mean Corpuscular Volume 94.4 Mean Corpuscular Hemoglobin 32.1 Mean Corpuscular Hemoglobin Concent 34.0 Red Cell Distribution Width 13.9 Platelet Count 227 Mean Platelet Volume 7.4 Blood Urea Nitrogen 39 Creatinine 13.95 Random Glucose 103 Calcium Level 8.5 Sodium Level 137 Potassium Level 3.5 Chloride Level 96 Carbon Dioxide Level 26.5 Anion Gap 15 Estimat Glomerular Filtration Rate 4 Assessment and Plan Plan POD#2 s/p R UE pseudoaneurysm repair. post-op nausea resolved D/C today Discharge Planning Today Cornel Osborn MD Jul 06, 2017 12:00
--- NOTE | 2017-07-06 12:08 | PD.VS.DC ---
cc: Sandy Adhikari MD; Eliel Fritz MD Discharge Summary Admission Date: Jul 04, 2017 at 06:24 Discharge Date: Jul 06, 2017 Admission Diagnosis: (1) Pseudoaneurysm of brachial artery (2) ESRD (end stage renal disease) on dialysis Discharge Diagnosis: (1) Pseudoaneurysm of brachial artery ICD Codes: I72.1 - Aneurysm of artery of upper extremity (2) ESRD (end stage renal disease) on dialysis ICD Codes: N18.6 - End stage renal disease; Z99.2 - Dependence on renal dialysis Brief History from admission 57 yo male with ESRD on PD and R brachial artery pseudoaneurysm. Growing but no ischemic symptoms. Procedure(s): R UE brachial artery pseudoaneurysm repair (interposition bypass with basilic vein) Significant Findings Laboratory Tests Test 07/04/17 13:30 07/05/17 04:23 07/06/17 04:38 Blood Urea Nitrogen 38 MG/DL (7-18) 40 MG/DL (7-18) 39 MG/DL (7-18) Creatinine 13.78 MG/DL (0.60-1.30) 14.35 MG/DL (0.60-1.30) 13.95 MG/DL (0.60-1.30) Random Glucose 115 MG/DL (74-106) 109 MG/DL (74-106) Calcium Level 8.3 MG/DL (8.5-10.1) Potassium Level 3.2 MEQ/L (3.5-5.1) 3.3 MEQ/L (3.5-5.1) Estimat Glomerular Filtration Rate 4 ML/MIN (>89) 4 ML/MIN (>89) 4 ML/MIN (>89) White Blood Count 12.7 TH/MM3 (4.0-11.0) Red Blood Count 3.28 MIL/MM3 (4.50-5.90) 2.84 MIL/MM3 (4.50-5.90) Hemoglobin 10.3 GM/DL (13.0-17.0) 9.1 GM/DL (13.0-17.0) Hematocrit 31.2 % (39.0-51.0) 26.8 % (39.0-51.0) Chloride Level 96 MEQ/L (98-107) 96 MEQ/L (98-107) Hospital Course: The patient underwent aneurysm repair with excision and interposition from prior axillary-brachial bypass to distal brachial artery. Palpable radial and ulnar arteries. POD1 had nausea but resolved by POD2. Feeling well, on home PD regimen and ready for DC. Discharge Condition: Good Discharge Disposition: Discharge Home Discharge Instructions: Do not soak in tub or swim in pool/ocean for 2 weeks. Any questions or concerns: Call [facility] [phone] As discussed, our office will call with post-op appointment. Cornel Osborn MD Jul 06, 2017 12:08
== END 2017-07-06 13:10 | disposition home or self-care (01) | DRG 252 ==
LOC: HSDI 06:24 → HCVI 13:00 → HCPC 07-05 18:41
PROVIDERS: ADMIT Surgery; ATTEND Surgery
PROC: 3E1M39Z Irrigation of Peritoneal Cavity using Dialysate, Percutaneous Approach (ICD-10-PCS; 2017-07-04)
PROC: 0317090 Bypass Right Brachial Artery to Right Upper Arm Artery with Autologous Venous Tissue, Open Approach (ICD-10-PCS; principal; 2017-07-04 08:30)
PROC: 05BB0ZZ Excision of Right Basilic Vein, Open Approach (ICD-10-PCS; 2017-07-04 08:30)
DX: T82.898A Other specified complication of vascular prosthetic devices, implants and grafts, initial encounter (principal); N18.6 End stage renal disease; I12.0 Hypertensive chronic kidney disease with stage 5 chronic kidney disease or end stage renal disease; I72.1 Aneurysm of artery of upper extremity; I16.0 Hypertensive urgency; R11.0 Nausea; Z99.2 Dependence on renal dialysis; Z87.891 Personal history of nicotine dependence; Y83.2 Surgical operation with anastomosis, bypass or graft as the cause of abnormal reaction of the patient, or of later complication, without mention of misadventure at the time of the procedure; Z88.8 Allergy status to other drugs, medicaments and biological substances
CPT/HCPCS: 80048; 85027; 90935; J0131; J0360; J1170; J1644; J2250; J2270; J2405; J2720; J3370; J7040; J7050

== ENCOUNTER 2017-11-13 11:37 | Emergency (ER) | payer MEDICARE, OTHER ==
[~2017-11-13 11:37] MED LIST changes: +NIFE60TA58 PO; -OMEP20TA PO; +OMEP20TA93 PO
[2017-11-13 11:40] VITALS: BP 135/79; PULSE 74; RESP 18; TEMP 97.5; O2SAT 100
[2017-11-13] MEDS ORDERED: MUPI2%T TOPICAL (12:53)
[2017-11-13] MEDS ORDERED: BACT800T5 PO (12:53)
--- NOTE | 2017-11-13 12:58 | PD ---
HPI Chief Complaint: Skin Problem Time Seen by Provider: 12:13 Travel History International Travel<30 days: No Contact w/Intl Traveler<30days: No Traveled to known affect area: No History of Present Illness HPI Patient comes emergency department for evaluation of 2 wounds. Patient reports started off having a small bump thought was a pimple in his scrotum on the left 3 weeks ago. Patient is he has been popping and squeezing it and picking it with a pen getting pus out of it. Patient developed a second lesion on his right antecubital over previous AV fistula site about a week ago. Patient reports getting pus out of it as well. Patient reports putting Neosporin on it. Patient reports that his dialysis nurse recommended he be evaluated for this. Patient reports itching around the site along with minimal burning sensation without radiation. Patient reports irritation is made worse to palpation. Denies any fevers. Patient reports he is on peritoneal dialysis and does this daily. Patient reports he thought it was a boil as he gets this frequently usually just pops them and they go away however these wounds are not going away. Denies any fevers. PFSH Past Medical History Blood Disorders: No Cancer: Yes (melanoma right side of neck) Cardiovascular Problems: Yes (leaky valve) Diabetes: No Dialysis: Yes Diminished Hearing: No Endocrine: No Genitourinary: Yes (anuric) Hepatitis: No Hypertension: Yes Immune Disorder: No Musculoskeletal: No Neurologic: No Psychiatric: No Respiratory: No Integumentary: Yes (melanoma) Renal Failure: Yes Thyroid Disease: No Past Surgical History Abdominal Surgery: Yes (peritoneal port placement, renetta ) AICD: No Arteriovenous Shunt: Yes (REMOVED 2014) Body Medical Devices: right upper arm dialysis shunt, abdominal peritoneal port Cardiac Surgery: No Cholecystectomy: Yes Ear Surgery: No Endocrine Surgery: Yes (parathyroidectomy) Eye Surgery: No Genitourinary Surgery: Yes (see other surgeries) Gynecologic Surgery: No Joint Replacement: No Oral Surgery: No Pacemaker: No Thoracic Surgery: No Other Surgery: Yes (parathyroidectomy/ fistula removed from right 2014) Social History Alcohol Use: No Tobacco Use: No Substance Use: No Allergies-Medications (Allergen,Severity, Reaction): Coded Allergies: nortriptyline (Verified Allergy, Severe, Hallucinations, 11/13/17) Reported Meds & Prescriptions Reported Meds & Active Scripts Active Bactroban Topical (Mupirocin) 22 Gm Cream 1 Applic TOPICAL BID Bactrim DS (Sulfamethoxazole-Trimethoprim) 800-160 Mg Tab 1 Tab PO BID Reported Clonazepam 1 Mg Tab 1 Mg PO HS Nifedipine ER 24 HR (Nifedipine) 60 Mg Tab 60 Mg PO BID Calcium Acetate (Calcium Acetate (Phosphate Bin) 667 Mg Cap 2,001 Mg PO TIDAC Toprol XL (Metoprolol Succinate) 100 Mg Tab 100 Mg PO BID Omeprazole 20 Mg Tab 20 Mg PO DAILY Lisinopril 20 Mg Tab 20 Mg PO HS Epogen (Epoetin Tristan) 20,000 Unit/2 Ml Vial 30,000 SQ TWICE A MONTH Clonidine (Clonidine HCl) 0.2 Mg Tab 0.2 Mg PO BID Dulcolax DR (Bisacodyl) 5 Mg Tabdr 5 Mg PO BID PRN Review of Systems Except as stated in HPI: all other systems reviewed are Neg Physical Exam Narrative GENERAL: Well-developed, well nourished, in no acute distress, and non-ill appearing. SKIN: Patient is a small lesion noted on the right antecubital with mild surrounding erythematous. Is mildly febrile. Patient reports mild tenderness to palpation. There is no crepitus or fluctuation. Patient has a second similar lesion on his left scrotum near the base. No crepitus or fluctuation. HEAD: Atraumatic. Normocephalic. EYES: Pupils equal and round. EOMI. No scleral icterus. No injection or drainage. ENT: No nasal bleeding or discharge. Mucous membranes pink and moist. NECK: Trachea midline. Supple. No nuclear rigidity. RESPIRATORY: No accessory muscle use. No respiratory distress. MUSCULOSKELETAL: No obvious deformities. No clubbing. No cyanosis. No edema. Full range of motion. NEUROLOGICAL: Awake and alert. No obvious cranial nerve deficits. Motor grossly within normal limits. Normal speech. PSYCHIATRIC: Appropriate mood and affect; insight and judgment normal. Data Data Last Documented VS Vital Signs Date Time Temp Pulse Resp B/P (MAP) Pulse Ox O2 Delivery O2 Flow Rate FiO2 11/13/17 11:40 97.5 74 18 135/79 (97) 100 Orders Orders Wound Culture And Gram Stain (11/13/17 12:25) Wound Culture And Gram Stain (11/13/17 12:26) Ed Discharge Order (11/13/17 12:58) MDM Medical Decision Making Medical Screen Exam Complete: Yes Emergency Medical Condition: Yes Differential Diagnosis Abscess, cellulitis, folliculitis, wound infection, gangrene Narrative Course The patient has cellulitis. There is no evidence of necrotizing fasciitis/ [place] at this time. There is no evidence of abscess. There is no evidence of local joint space involvement. There is no evidence of deep venous thrombosis. The patient will be discharged on antibiotics. The patient was given signs and symptoms warnings for worsening infection, such as spreading of redness, increasing pain, and/or swelling, associated heat, or fever and instructed to return immediately if these signs or symptoms worsen. The patient is to follow up with physician in 2 days for recheck or return here in 2 days for recheck if unable to establish outpatient follow up. Sooner if worsens or as needed. The patient agrees with plan. Patient in no obvious distress upon re-evaluation. Discussed patient with Dr. Soto prior to discharge secondary patient being on peritoneal dialysis, who recommends Bactrim DS twice daily times 7 days along with topical antibiotic. Patient was asked if they wanted to speak to my attending, which the patient did not wish to do at this time. Any questions/concerns in reference to patient diagnosis/condition discussed and clarified prior to patient's discharge. Reinforced sheer importance of close follow up with patient 's primary physician or primary care clinic or to return here in 2 days for recheck. Instructed patient to return to ED immediately, if symptoms return/ worsen. Patient showed understanding of above instructions. Further instructions and recommendations were detailed in discharge paperwork. Patient ambulated without difficulty out of ED at discharge. Diagnosis Primary Impression: Cellulitis Qualified Codes: L03.90 - Cellulitis, unspecified Patient Instructions: Cellulitis (ED), General Instructions Additional Instructions: Follow-up with your primary care physician return here in 2 days for recheck. Take all medication as prescribed. Keep wound dry and clean as possible using soap and water. Return to the emergency department if symptoms get worse. Med/Other Pt SpecificInfo: Prescription(s) given Scripts Mupirocin Topical (Bactroban Topical) 22 Gm Cream 1 APPLIC TOPICAL BID for Mgmt Bacterial Infection, #1 TUBE 0 Refills Prov: Yandel Soto MD 11/13/17 Sulfamethoxazole-Trimethoprim (Bactrim DS) 800-160 Mg Tab 1 TAB PO BID for Infection, #14 TAB 0 Refills Prov: Yandel Soto MD 11/13/17 Disposition: 01 DISCHARGE HOME Condition: Stable Jae Mendiola Nov 13, 2017 12:58
[2017-11-13] MEDS ORDERED: CLON1TAB PO (13:00)
== END 2017-11-13 13:21 | disposition home or self-care (01) ==
LOC: NEPK 11:37
DX: L03.90 Cellulitis, unspecified (principal); N19 Unspecified kidney failure; Z99.2 Dependence on renal dialysis
CPT/HCPCS: 86403; 87070; 87205; 99283

== ENCOUNTER 2018-04-10 01:45 | Inpatient (IN) ==
--- NOTE | 2018-04-10 02:00 | ED ---
HPI General Chief complaint: Fever Stated complaint: Trans Fl Hosp/Evac Time Seen by Provider: 04/10/18 01:56 History of Present Illness HPI narrative: Patient 58-year-old male presents emergency department as a transfer from [facility] accepted by Dr. Berger for a diagnosis of sepsis. Patient states he fell yesterday and thought he was doing well but then noticed his arm was reddened and painful today. His temperature of 101.6 a heart rate of 118. Per nursing he had doses of vancomycin and Zosyn prior to transfer. 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 Osborn. Patient states feels very comfortable currently. Received no IV fluids prior to transfer as a physician who transferred stated that he had end-stage renal disease and was stable otherwise. Related Data Home Medications Medication Instructions Recorded Confirmed bisacodyl 5 mg PO DAILY 04/10/18 04/10/18 calcium acetate 1,334 mg PO TID 04/10/18 04/10/18 clonazepam 1 mg PO HS 04/10/18 04/10/18 clonidine HCl 0.2 mg PO BID 04/10/18 04/10/18 lisinopril 20 mg PO HS 04/10/18 04/10/18 metoprolol tartrate 100 mg PO BID 04/10/18 04/10/18 omeprazole magnesium [Prilosec OTC] 20 mg PO BID 04/10/18 04/10/18 sevelamer carbonate [Renvela] 2 tab PO TIDAC 04/10/18 04/10/18 Allergies Allergy/AdvReac Type Severity Reaction Status Date / Time nortriptyline Allergy Severe Hallucinati Verified 11/13/17 12:34 ons Review of Systems Except as stated in HPI: all other systems reviewed are negative [facility] Medical History Medical History Dialysis patient (Acute) FH: cholecystectomy (Acute) GERD (gastroesophageal reflux disease) (Acute) Hypertension (Acute) Leaky heart valve (Acute) Melanoma of right side of neck (Acute) Renal disease (Acute) Surgical History Surgical History H/O parathyroidectomy (Acute) Family History Family History Other No family history of cardiac disease Social History Social History Substance History: No History of Abuse Second Hand Smoke Exposure: No Smoking Status: Former smoker Tobacco Type: Cigarettes How Often Do You Have a Drink Containing Alcohol: Never Exam Narrative Exam Narrative: GENERAL: Well-developed comfortable appearing male in no obvious distress, nontoxic peer SKIN: Focused skin assessment warm/dry. There is some cellulitis in tenderness to the right arm on the medial aspect. No fluctuance felt, multiple well- healed surgical scars without any skin breakdown. HEAD: Atraumatic. Normocephalic. EYES: Pupils equal and round. No scleral icterus. No injection or drainage. ENT: No nasal bleeding or discharge. Mucous membranes pink and moist. NECK: Trachea midline. No JVD. CARDIOVASCULAR: Regular rate and rhythm. No murmur appreciated. RESPIRATORY: No accessory muscle use. Clear to auscultation. Breath sounds equal bilaterally. GASTROINTESTINAL: Abdomen soft, non-tender, nondistended. Hepatic and splenic margins not palpable. Peritoneal dialysis catheter site clean dry and intact MUSCULOSKELETAL: No obvious deformities. No clubbing. No cyanosis. No edema. NEUROLOGICAL: Awake and alert. No obvious cranial nerve deficits. Motor grossly within normal limits. Normal speech. PSYCHIATRIC: Appropriate mood and affect; insight and judgment normal. Course Initial Documented Vital Signs Temperature 101.2 F H 04/10/18 01:58 Pulse Rate 105 H 04/10/18 01:58 Respiratory Rate 16 04/10/18 01:58 Blood Pressure 114/58 L 04/10/18 01:58 Pulse Oximetry 100 04/10/18 01:58 Last Documented Vital Signs Temperature 97.2 F L 04/12/18 12:00 Pulse Rate 66 04/12/18 12:00 Respiratory Rate 17 04/12/18 12:00 Blood Pressure 124/74 04/12/18 12:00 Pulse Oximetry 98 04/12/18 12:00 Medical Decision Making [facility] Narrative Medical decision making narrative: Patient room to the emergency department as a transfer to Dr. Berger. Seen by me very briefly. Dr. Berger and I have discussed patient and he will admit. Differential Diagnosis Differential Diagnosis: Cellulitis, sepsis, abscess peer Lab Data Result diagrams: 04/12/18 09:34 04/12/18 09:34 Lab Results 04/10/18 04/10/18 04/11/18 Range/Units 14:39 17:37 10:02 WBC 7.1 (4.0-11.0) th/mm3 RBC 2.82 L (4.50-5.90) mil/mm3 Hgb 9.1 L (13.0-17.0) gm/dL Hct 26.5 L (39.0-51.0) % MCV 93.8 (80.0-100.0) fL MCH 32.2 (27.0-34.0) pg MCHC 34.3 (32.0-36.0) % RDW 14.1 (11.6-17.2) % Plt Count 170 (150-450) th/mm3 MPV 8.0 (7.0-11.0) fL Neut % (Auto) 71.9 H (16.0-70.0) % Lymph % (Auto) 13.9 (9.0-44.0) % [place] % (Auto) 10.7 H (0.0-8.0) % Eos % (Auto) 2.9 (0.0-4.0) % Baso % (Auto) 0.6 (0.0-2.0) % Neut # (Auto) 5.1 (1.8-7.7) th/mm3 Lymph # (Auto) 1.0 (1.0-4.8) th/mm3 [place] # (Auto) 0.8 (0.0-0.9) th/mm3 Eos # (Auto) 0.2 (0.0-0.4) th/mm3 Baso # (Auto) 0.0 (0.0-0.2) th/mm3 WBC Differential . Differential Comment Auto diff final PT (9.8-11.6) sec INR Ratio Sodium (136-145) meq/L Potassium (3.5-5.1) meq/L Chloride (98-107) meq/L Carbon Dioxide (21.0-32.0) meq/L Anion Gap (5-15) meq/L BUN (7-18) mg/dL Creatinine 18.02 H* (0.60-1.30) mg/dL Estimated GFR 3 L (>89) mL/min Random Glucose (74-106) mg/dL Hemoglobin A1c (4.3-6.0) % Calcium (8.5-10.1) mg/dL Phosphorus (2.5-4.9) mg/dL Magnesium (1.5-2.5) mg/dL Total Bilirubin (0.2-1.0) mg/dL AST (15-37) U/L ALT (12-78) U/L Alkaline Phosphatase (45-117) U/L Total Protein (6.4-8.2) g/dL Albumin (3.4-5.0) g/dL TSH (0.358-3.740) uIU/mL Free T4 (0.76-1.46) ng/dL Random Vancomycin Comment RPR Nonreactive (Nonreactive) 04/11/18 04/11/18 04/11/18 Range/Units 10:02 10:02 10:02 WBC (4.0-11.0) th/mm3 RBC (4.50-5.90) mil/mm3 Hgb (13.0-17.0) gm/dL Hct (39.0-51.0) % MCV (80.0-100.0) fL MCH (27.0-34.0) pg MCHC (32.0-36.0) % RDW (11.6-17.2) % Plt Count (150-450) th/mm3 MPV (7.0-11.0) fL Neut % (Auto) (16.0-70.0) % Lymph % (Auto) (9.0-44.0) % [place] % (Auto) (0.0-8.0) % Eos % (Auto) (0.0-4.0) % Baso % (Auto) (0.0-2.0) % Neut # (Auto) (1.8-7.7) th/mm3 Lymph # (Auto) (1.0-4.8) th/mm3 [place] # (Auto) (0.0-0.9) th/mm3 Eos # (Auto) (0.0-0.4) th/mm3 Baso # (Auto) (0.0-0.2) th/mm3 WBC Differential Differential Comment PT 11.2 (9.8-11.6) sec INR 1.1 Ratio Sodium 135 L (136-145) meq/L Potassium 2.9 L* (3.5-5.1) meq/L Chloride 95 L (98-107) meq/L Carbon Dioxide 25.1 (21.0-32.0) meq/L Anion Gap 15 (5-15) meq/L BUN 46 H (7-18) mg/dL Creatinine 17.46 H* (0.60-1.30) mg/dL Estimated GFR 3 L (>89) mL/min Random Glucose 88 (74-106) mg/dL Hemoglobin A1c 5.0 (4.3-6.0) % Calcium 8.8 (8.5-10.1) mg/dL Phosphorus 5.3 H (2.5-4.9) mg/dL Magnesium 2.2 (1.5-2.5) mg/dL Total Bilirubin 0.6 (0.2-1.0) mg/dL AST 9 L (15-37) U/L ALT 11 L (12-78) U/L Alkaline Phosphatase 34 L (45-117) U/L Total Protein 6.2 L (6.4-8.2) g/dL Albumin 2.6 L (3.4-5.0) g/dL TSH 4.180 H (0.358-3.740) uIU/mL Free T4 1.01 (0.76-1.46) ng/dL Random Vancomycin 26.9 Comment RPR (Nonreactive) 04/12/18 04/12/18 Range/Units 09:34 09:34 WBC 4.8 (4.0-11.0) th/mm3 RBC 2.88 L (4.50-5.90) mil/mm3 Hgb 9.4 L (13.0-17.0) gm/dL Hct 27.1 L (39.0-51.0) % MCV 94.4 (80.0-100.0) fL MCH 32.8 (27.0-34.0) pg MCHC 34.8 (32.0-36.0) % RDW 14.1 (11.6-17.2) % Plt Count 162 (150-450) th/mm3 MPV 8.7 (7.0-11.0) fL Neut % (Auto) 53.7 (16.0-70.0) % Lymph % (Auto) 26.2 (9.0-44.0) % [place] % (Auto) 14.7 H (0.0-8.0) % Eos % (Auto) 4.5 H (0.0-4.0) % Baso % (Auto) 0.9 (0.0-2.0) % Neut # (Auto) 2.6 (1.8-7.7) th/mm3 Lymph # (Auto) 1.3 (1.0-4.8) th/mm3 [place] # (Auto) 0.7 (0.0-0.9) th/mm3 Eos # (Auto) 0.2 (0.0-0.4) th/mm3 Baso # (Auto) 0.0 (0.0-0.2) th/mm3 WBC Differential . Differential Comment Auto diff final PT (9.8-11.6) sec INR Ratio Sodium 136 (136-145) meq/L Potassium 3.2 L (3.5-5.1) meq/L Chloride 95 L (98-107) meq/L Carbon Dioxide 25.4 (21.0-32.0) meq/L Anion Gap 16 H (5-15) meq/L BUN 41 H (7-18) mg/dL Creatinine 16.43 H* D (0.60-1.30) mg/dL Estimated GFR 3 L (>89) mL/min Random Glucose 80 (74-106) mg/dL Hemoglobin A1c (4.3-6.0) % Calcium 9.0 (8.5-10.1) mg/dL Phosphorus 5.5 H (2.5-4.9) mg/dL Magnesium 2.0 (1.5-2.5) mg/dL Total Bilirubin 0.5 (0.2-1.0) mg/dL AST 12 L (15-37) U/L ALT 12 (12-78) U/L Alkaline Phosphatase 33 L (45-117) U/L Total Protein 6.2 L (6.4-8.2) g/dL Albumin 2.4 L (3.4-5.0) g/dL TSH (0.358-3.740) uIU/mL Free T4 (0.76-1.46) ng/dL Random Vancomycin 23.2 Comment RPR (Nonreactive) Imaging Data Radiologist's impression: Upper Extremity Ultrasound 04/10/18 00:00 CONCLUSION: 1. Patient graft as above. Known occlusion of the [place] brachial artery. Discharge Plan Discharge Disposition Patient Disposition: 30 Still Patient Discharge Condition Condition: Stable Discharge Order Discharge Orders: Discharge Order (Routine); Ordered 04/12/18 Ordered By: Ceci Guzmán Nephrology Clear for Discharge (Routine); Ordered 04/11/18 Ordered By: Sandy Adhikari Vascular Surgery Clear for Discharge (Routine); Ordered 04/11/18 Ordered By: Cornel Osborn Discharge Details Anticipated Discharge Date: 04/12/18 Physicians Team ED Provider: Cornel Montelongo Primary Care Provider: Ijeoma Tuttle Attending Provider: Ceci Guzmán Other Providers: Candace Medley ; Sandy Adhikari ; Cornel Osborn Status ED Status: Left Department Discharge Information Discharge Date/Time: 04/10/18 03:42
[2018-04-10] MEDS ORDERED: Bisacodyl 10 MG Supp RECTAL PRN (02:32)
[2018-04-10] MEDS ORDERED: Temazepam 15 MG Capsule PO PRN (02:32)
[2018-04-10] MEDS: Piperacil/Tazo 3.375 GM Premix 50 ML IV.SIG SCH ×3 (02:40→18:41)
[2018-04-10] MEDS ORDERED: Vancomycin Consult Pharmacy 1 EACH OTHER SCH (03:00)
--- NOTE | 2018-04-10 03:29 | P.HPIM ---
History of Present Illness Primary Care Physician: Ijeoma Tuttle History of Present Illness: 58-year-old male with a history of end-stage renal disease status post failed transplant, right upper extremity AV fistula infection, currently on peritoneal dialysis, who presents with acute onset of fever and chills around 7 PM yesterday evening. Patient notes warmth and redness of right arm over the past day. He denies any abdominal pain, sore throat, chest pain, shortness of breath , nausea, vomiting, lightheadedness, dizziness. Patient makes no urine. Patient did not received peritoneal dialysis last night. Patient also reports small subcentimeter lesions, one at the gluteal cleft, one on the scrotum which have been bothering him over the past few months, however no acute changes over the past few days. Patient presented to [facility], was found to have fever of 101 , tachycardia, blood cultures were performed, lactic acid within normal limits, white count 10.6. BUN 48, creatinine 16. Chest x-ray performed with no acute disease. I was contacted by [facility] to report that patient had refused admission to their hospital and wanted to be transferred to [facility]. White blood cell count 10.6. BUN 48, creatinine 16. Chest x-ray performed and shows no acute disease. Inpatient Certification: I certify that the inpatient services were ordered in accordance with Medicare regulations governing the order. This includes certification that hospital inpatient services are reasonable and necessary and in the case of services not specified as inpatient-only under 42 CFR 419.22(n), that they are appropriately provided as inpatient services in accordance to with the 2-midnight benchmark under 43 CFR 412.3(e) Estimated Total Length of Stay (Days): 2 Plans for Post Hospital Care: Home [facility] - History History Provided By: Patient, Medical Record - Medical History Medical History: Medical History (Last Updated 04/10/18 @ 02:13 by Shelby Vallejo) Dialysis patient FH: cholecystectomy GERD (gastroesophageal reflux disease) Hypertension Leaky heart valve Melanoma of right side of neck Renal disease - Surgical History Surgical History: Surgical History (Last Updated 04/10/18 @ 02:13 by Shelby Vallejo) H/O parathyroidectomy - Family History Family History: Family History (Last Updated 04/10/18 @ 03:24 by Cale Berger MD) Other No family history of cardiac disease - Tobacco History Tobacco Use In Past 30 Days: No Smoking Status: Former smoker - Alcohol History How Often Do You Have a Drink Containing Alcohol: Never - Substance Use History Substance History: No History of Abuse - Travel History Recent Travel in the [place] Within the Last 8 Weeks: No Recent Travel Out of the Country Within the Last 8 Weeks: No - Immunization History Tetanus Immunization: Unsure Hx Influenza Vaccine This Season: No Medications and Allergies Active Medications: Active Medications Al Hydroxide/Mg Hydroxide (Milk Of Magnesia Liq) 30 ml PO Q12H PRN PRN Reason: Mild Constipation Bisacodyl (Dulcolax Supp) 10 mg RECTAL DAILY PRN PRN Reason: SEVERE CONSITIPATION Bisacodyl (Dulcolax Ec) 5 mg PO DAILY [facility] Calcium Acetate (Phoslo) 667 mg PO TID [facility] Clonazepam (Klonopin) 1 mg PO HS [facility] Clonidine HCl (Catapres) 0.2 mg PO BID [facility] Pharmacy Profile Note (Vancomycin Consult Pharmacy) 0 mls @ 0 mls/hr OTHER UNSCH [facility] Piperacillin/Tazobactam/Dextrose (Zosyn 3.375 Gm Premix) 50 mls @ 100 mls/hr IV.SIG Q8H [facility] Last Admin: 04/10/18 02:40 Dose: 100 mls/hr Vancomycin HCl 1,000 mg/ (Sodium Chloride) 250 mls @ 250 mls/hr IV.SIG ONCE ONE Stop: 04/10/18 04:59 Lactulose (Lactulose Liq) 30 ml PO DAILY PRN PRN Reason: SEVERE CONSITIPATION Lisinopril (Prinivil) 20 mg PO HS [facility] Metoprolol Tartrate (Lopressor) 100 mg PO BID [facility] Pantoprazole Sodium (Protonix) 20 mg PO BID [facility] Sennosides (Senokot) 17.2 mg PO Q12H PRN PRN Reason: Moderate Constipation Temazepam (Restoril) 15 mg PO HS PRN PRN Reason: INSOMNIA Allergies Allergy/AdvReac Type Severity Reaction Status Date / Time nortriptyline Allergy Severe Hallucinati Verified 11/13/17 12:34 ons Home Medications Medication Instructions Recorded Confirmed Type bisacodyl 5 mg PO DAILY 04/10/18 04/10/18 History calcium acetate 667 mg PO TID 04/10/18 04/10/18 History clonazepam 1 mg PO HS 04/10/18 04/10/18 History clonidine HCl 0.2 mg PO BID 04/10/18 04/10/18 History lisinopril 20 mg PO HS 04/10/18 04/10/18 History metoprolol tartrate 100 mg PO BID 04/10/18 04/10/18 History omeprazole magnesium [Prilosec OTC] 20 mg PO BID 04/10/18 04/10/18 History Exam Vital signs: Vital Signs 04/10/18 01:58 Temperature 101.2 F H Pulse Rate 105 H Respiratory Rate 16 Blood Pressure 114/58 L Pulse Oximetry 100 Intake & Output 04/09/18 04/09/18 04/10/18 06:59 18:59 06:59 Weight 69.853 kg Narrative: GENERAL: Patient sitting up in bed. Appears comfortable. Alert and oriented 3. SKIN: Warm and dry. Right upper extremity AV fistula with erythema from antecubital fossa to mid bicep. Warmth and mild tenderness to palpation. Patient has what can be described as a canker on the left side of scrotum subcentimeter, as well as similar lesion on gluteal cleft, with minimal surrounding erythema. HEAD: Atraumatic. Normocephalic. EYES: Pupils equal and round. No scleral icterus. No injection or drainage. ENT: No nasal bleeding or discharge. Mucous membranes pink and moist. NECK: Trachea midline. No JVD. CARDIOVASCULAR: Regular rate and rhythm. RESPIRATORY: No accessory muscle use. Clear to auscultation. Breath sounds equal bilaterally. GASTROINTESTINAL: Abdomen soft, non-tender, nondistended. Hepatic and splenic margins not palpable. Peritoneal dialysis catheter in place without any surrounding erythema. No abdominal tenderness MUSCULOSKELETAL: Extremities without clubbing, cyanosis, or edema. No obvious deformities. NEUROLOGICAL: Awake and alert. No obvious cranial nerve deficits. Motor grossly within normal limits. Five out of 5 muscle strength in the arms and legs. Normal speech. PSYCHIATRIC: Appropriate mood and affect; insight and judgment normal. Caprini VTE Risk Assessment Caprini VTE Risk Assessment: No/Low Risk (score <= 1) Caprini Risk Assessment Model: Point Value = 1 Point Value = 2 Point Value = 3 Point Value = 5 Age 41-60 Minor surgery BMI > 25 kg/m2 Swollen legs Varicose veins or History of unexplained or recurrent spontaneous Oral contraceptives or hormone replacement Sepsis (< 1 month) Serious lung disease, including pneumonia (< 1 month) Abnormal pulmonary function Acute myocardial infarction Congestive heart failure (< 1 month) History of inflammatory bowel disease Medical patient at bed rest Age 61-74 Arthroscopic surgery Major open surgery (> 45 min) Laparoscopic surgery (> 45 min) Malignancy Confined to bed (> 72 hours) Immobilizing plaster cast Central venous access Age >= 75 History of VTE Family history of VTE Factor V Leiden Prothrombin [id number] Lupus anticoagulant Anticardiolipin antibodies Elevated serum homocysteine Heparin-induced thrombocytopenia Other congenital or acquired thrombophilia Stroke (< 1 month) Elective arthroplasty Hip, pelvis, or leg fracture Acute spinal cord injury (< 1 month) Prophylaxis Regimen: Total Risk Factor Score Risk Level Prophylaxis Regimen 0-1 Low Early ambulation 2 Moderate Order ONE of the following: *Sequential Compression Device (SCD) *Heparin 5000 units SQ BID 3-4 Higher Order ONE of the following medications: *Heparin 5000 units SQ TID *Enoxaparin/Lovenox 40 mg SQ daily (WT < 150 kg, CrCl > 30 mL/min) *Enoxaparin/Lovenox 30 mg SQ daily (WT < 150 kg, CrCl > 10-29 mL/min) *Enoxaparin/Lovenox 30 mg SQ BID (WT < 150 kg, CrCl > 30 mL/min) AND/OR *Sequential Compression Device (SCD) 5 or more Highest Order ONE of the following medications: *Heparin 5000 units SQ TID (Preferred with Epidurals) *Enoxaparin/Lovenox 40 mg SQ daily (WT < 150 kg, CrCl > 30 mL/min) *Enoxaparin/Lovenox 30 mg SQ daily (WT < 150 kg, CrCl > 10-29 mL/min) *Enoxaparin/Lovenox 30 mg SQ BID (WT < 150 kg, CrCl > 30 mL/min) AND *Sequential Compression Device (SCD) Assessment and Plan - Plan //Sepsis. //Cellulitis of right upper extremity AV fistula. Acute. Fever, tachycardia, right upper extremity cellulitis overlying AV fistula. Cultures from [facility] are pending Vancomycin and Zosyn = Lactate within normal limits. Do not suspect peritoneal fluid infection, and there is no peritoneal fluid to evaluate at this time. Consult vascular surgery. Consult infectious disease. //End-stage renal disease on peritoneal dialysis Consults patient's lifestyle consultant, Dr. Adhikari. //Hypertension. Blood pressure acceptable. Continue home medications //Chancres of scrotum and gluteal cleft. Check RPR. Hopefully will improve with antibiotics. ID will be consulted for above. //GERD. Chronic. Continue home medications. Discussed Condition With: Patient, nurse, ED physician at [facility], ED physician in [facility]
[2018-04-10] MEDS ORDERED: Vancomycin Inj 1,000 MG in Sodium Chlor 0.9% Inj 250 ML IV.SIG ONE (04:00)
[2018-04-10] MEDS ORDERED: clonazePAM 1 MG Tablet PO ONE (04:00)
--- NOTE | 2018-04-10 07:41 | P.CONVS ---
History of Present Illness Service: Vascular Surgery Consult date: 04/10/18 Requesting Physician: Cale Berger Reason for Consult: R arm cellulitis Primary Care Provider: Ijeoma Tuttle Family Provider: Ijeoma Tuttle Chief Complaint: R arm pain, cellulitis History of Present Illness: 58 yo male with ESRD and multiple R UE AVF elsewhere, now getting PD. In Jun 2017, he presented to my clinic with large pseudoaneurysm. I repaired this with a basilic vein interposition. He did well after that and has had no hand ischemia and his wounds have healed. Fell on wet tile Tues and has arm pain. No hand pain. Endorses incisional erythema. Review of Systems Constitutional: Denies fever(s) Cardiovascular: Denies chest pain Musculoskeletal: Reports body aches PMFSH - History History Provided By: Patient - Medical History Medical History: Medical History (Last Updated 04/10/18 @ 02:13 by Shelby Vallejo) Dialysis patient FH: cholecystectomy GERD (gastroesophageal reflux disease) Hypertension Leaky heart valve Melanoma of right side of neck Renal disease - Surgical History Surgical History: Surgical History (Last Updated 04/10/18 @ 02:13 by Shelby Vallejo) H/O parathyroidectomy - Family History Family History: Family History (Last Updated 04/10/18 @ 03:24 by Cale Berger MD) Other No family history of cardiac disease - Tobacco History Second Hand Smoke Exposure: No Tobacco Use In Past 30 Days: No Smoking Status: Former smoker Tobacco Type: Cigarettes - Alcohol History How Often Do You Have a Drink Containing Alcohol: Never - Substance Use History Substance History: No History of Abuse - Travel History Recent Travel in the [place] Within the Last 8 Weeks: No Recent Travel Out of the Country Within the Last 8 Weeks: No - Immunization History Tetanus Immunization: Unsure Hx Influenza Vaccine This Season: No Medications and Allergies Active Medications: Active Medications Al Hydroxide/Mg Hydroxide (Milk Of Magnesia Liq) 30 ml PO Q12H PRN PRN Reason: Mild Constipation Bisacodyl (Dulcolax Supp) 10 mg RECTAL DAILY PRN PRN Reason: SEVERE CONSITIPATION Bisacodyl (Dulcolax Ec) 5 mg PO DAILY [facility] Calcium Acetate (Phoslo) 667 mg PO TID [facility] Clonazepam (Klonopin) 1 mg PO HS [facility] Clonidine HCl (Catapres) 0.2 mg PO BID [facility] Pharmacy Profile Note (Vancomycin Consult Pharmacy) 0 mls @ 0 mls/hr OTHER UNSCH [facility] Piperacillin/Tazobactam/Dextrose (Zosyn 3.375 Gm Premix) 50 mls @ 100 mls/hr IV.SIG Q8H [facility] Last Infusion: 04/10/18 03:10 Dose: Infused Lactulose (Lactulose Liq) 30 ml PO DAILY PRN PRN Reason: SEVERE CONSITIPATION Lisinopril (Prinivil) 20 mg PO HS [facility] Metoprolol Tartrate (Lopressor) 100 mg PO BID [facility] Pantoprazole Sodium (Protonix) 20 mg PO BID [facility] Sennosides (Senokot) 17.2 mg PO Q12H PRN PRN Reason: Moderate Constipation Temazepam (Restoril) 15 mg PO HS PRN PRN Reason: INSOMNIA Allergies Allergy/AdvReac Type Severity Reaction Status Date / Time nortriptyline Allergy Severe Hallucinati Verified 11/13/17 12:34 ons Home Medications Medication Instructions Recorded Confirmed Type bisacodyl 5 mg PO DAILY 04/10/18 04/10/18 History calcium acetate 667 mg PO TID 04/10/18 04/10/18 History clonazepam 1 mg PO HS 04/10/18 04/10/18 History clonidine HCl 0.2 mg PO BID 04/10/18 04/10/18 History lisinopril 20 mg PO HS 04/10/18 04/10/18 History metoprolol tartrate 100 mg PO BID 04/10/18 04/10/18 History omeprazole magnesium [Prilosec OTC] 20 mg PO BID 04/10/18 04/10/18 History Physical Exam Vital Signs / I&O: Vital Signs 04/10/18 01:58 04/10/18 03:35 04/10/18 04:00 Temperature 101.2 F H 99.6 F Pulse Rate 105 H 103 H 96 H Respiratory Rate 16 20 18 Blood Pressure 114/58 L 105/45 L 116/52 L Pulse Oximetry 100 96 96 Intake & Output 04/09/18 04/10/18 04/10/18 18:59 06:59 18:59 Intake Total 410 / 410 Balance 410 / 410 Weight 71.8 kg Intake: IV 50 / 50 Zosyn 3.375 GM Premix 50 ML @ 50 / 50 100 mls/hr IV.SIG Q8H [facility] Rx#: [id number] Oral 360 / 360 Other: # Voids 0 Date of Last Bowel Movement 04/09/18 Weight On Admission 71.8 kg Neuro: alert, oriented HEENT: NC/AT; anicteric Neck: no JVD Heart: reg rate Lungs: clear Vascular: palpable UE pulses Extremities: Incisions R UE healed; minimal erythema Assessment and Plan - Assessment (1) Pseudoaneurysm of distal brachial artery Code(s): I72.1 - Aneurysm of artery of upper extremity Status: Acute - Plan Pt with patent bypass and no wound complications. Mild erythema but no fluctuance. Would get duplex and can likely be managed as outpatient. Cornel Osborn MD FACS RPVI carroter [facility] - Heart and Vascular Surgery at [facility] [phone]
[2018-04-10] MEDS ORDERED: Calcium Acetate 667 MG Capsule PO SCH (09:00)
--- NOTE | 2018-04-10 10:35 | P.CONNP ---
History of Present Illness Service: Nephrology Consult date: 04/10/18 Requesting Physician: Cale Breger Reason for Consult: End-stage renal disease management Primary Care Provider: Ijeoma Tuttle Family Provider: Ijeoma Tuttle Chief Complaint: R arm pain, cellulitis History of Present Illness: Patient is a 58-year-old white male with history of end-stage renal disease on peritoneal dialysis had a fall on a wet tile and had erythema around AV fistula incision site with redness, he complained of nausea, vomiting once, and he was feeling sick and presented to the emergency at [facility] last night as the right elbow area was painful as well, transferred to [place], today he is feeling better he denies any chest pain or shortness of breath, patient does his peritoneal dialysis at night for 12 hours and with midday exchange. Review of Systems Constitutional: Reports anorexia, Reports body ache(s), Reports fatigue, Reports fever(s) Eyes: Denies blind spots, Denies blurry vision, Denies bulging eyes, Denies change in vision, Denies double vision, Denies discharge, Denies dry eyes, Denies floaters, Denies irritation, Denies itchy eyes, Denies loss of vision, Denies pain, Denies requires corrective lenses, Denies sensitivity to light, Denies other Ears, Nose, Mouth, and Throat: Denies abnormal hearing, Denies bleeding gums, Denies bad breath, Denies change in voice, Denies dental pain, Denies difficulty swallowing, Denies dizziness, Denies dry mouth, Denies ear discharge , Denies ear pain, Denies facial pain, Denies headache(s), Denies hearing loss, Denies hoarseness, Denies lip swelling, Denies nosebleed, Denies mouth lesions, Denies mouth pain, Denies nasal congestion, Denies nasal discharge, Denies nasal obstruction, Denies nasal trauma, Denies neck lump, Denies neck pain, Denies nose pain, Denies pain with swallowing, Denies poor balance, Denies post nasal drip, Denies ringing in the ears, Denies sinus pain, Denies sinus pressure , Denies sore throat, Denies throat swelling, Denies tongue swelling, Denies other Cardiovascular: Denies chest pain, Denies chest pain at rest, Denies chest pain with activity, Denies excessive sweating, Denies fainting, Denies fast heart rate, Denies foot swelling, Denies generalized swelling, Denies irregular heart rhythm, Denies leg pain with activity, Denies leg sores, Denies leg swelling, Denies lightheadedness, Denies radiating jaw, neck or arm pain, Denies rapid, pounding, or irregular heartbeat, Denies shortness of breath, Denies shortness of breath with activity, Denies shortness of breath when lying down, Denies shortness of breath causing sudden awakening, Denies slow heart rate, Denies other Respiratory: Denies change in phlegm color, Denies chest congestion, Denies cough, Denies coughing up blood, Denies excessive phlegm production, Denies pain on inspiration, Denies pain with cough, Denies shortness of breath, Denies shortness of breath with activity, Denies snoring, Denies stridor, Denies wheezing, Denies other Gastrointestinal: Reports nausea, Reports vomiting Genitourinary: Reports urinary frequency (Patient does not make urine) Musculoskeletal: Reports body aches, Reports joint pain Skin/Breast: Reports redness Neurologic: Denies abnormal hearing, Denies abnormal movements, Denies abnormal speech, Denies abnormal walking, Denies behavioral changes, Denies burning sensations, Denies confusion, Denies dizziness, Denies fainting, Denies frequent falls, Denies headache(s), Denies lack of coordination, Denies localized weakness, Denies loss of vision, Denies memory loss, Denies numbness, Denies other visual disturbances, Denies radiating pain, Denies restless legs, Denies convulsions, Denies seizure-like activity, Denies sensory deficit, Denies tingling, Denies tingling/numbness/burning sensations, Denies tremor(s), Denies unsteadiness, Denies weakness, Denies other Psychiatric: Denies abnormal sleep pattern, Denies anxiety, Denies behavioral changes, Denies change in appetite, Denies change in sex drive, Denies confusion , Denies depression, Denies difficulty concentrating, Denies hearing things others do not hear, Denies hopelessness, Denies irritability, Denies lack of enjoyment, Denies memory loss, Denies mood swings, Denies panic attacks, Denies paranoia, Denies seeing things others do not see, Denies sensing things others do not sense, Denies tactile hallucinations, Denies thoughts of hurting/killing others, Denies thoughts of hurting/killing yourself, Denies other Endocrine: Denies cold intolerance, Denies excessive sweating, Denies flushing, Denies heat intolerance, Denies increased hunger, Denies increased thirst, Denies increased urination, Denies rapid, pounding, or irregular heartbeat, Denies other Hematologic/Lymphatic: Denies easy bleeding, Denies easy bruising, Denies enlarged lymph nodes, Denies other Allergic/Immunologic: Denies GI upset with certain foods, Denies hives, Denies itchy eyes, Denies lip swelling, Denies seasonal runny nose, Denies throat swelling, Denies tongue swelling, Denies wheezing, Denies other PMFSH - History History Provided By: Patient - Medical History Medical History: Medical History (Last Updated 04/10/18 @ 02:13 by Shelby Vallejo) Dialysis patient FH: cholecystectomy GERD (gastroesophageal reflux disease) Hypertension Leaky heart valve Melanoma of right side of neck Renal disease - Surgical History Surgical History: Surgical History (Last Updated 04/10/18 @ 02:13 by Shelby Vallejo) H/O parathyroidectomy - Family History Family History: Family History (Last Updated 04/10/18 @ 03:24 by Cale Berger MD) Other No family history of cardiac disease - Tobacco History Second Hand Smoke Exposure: No Tobacco Use In Past 30 Days: No Smoking Status: Former smoker Tobacco Type: Cigarettes - Alcohol History How Often Do You Have a Drink Containing Alcohol: Never - Substance Use History Substance History: No History of Abuse - Travel History Recent Travel in the [place] Within the Last 8 Weeks: No Recent Travel Out of the Country Within the Last 8 Weeks: No - Immunization History Tetanus Immunization: Unsure Hx Influenza Vaccine This Season: No Medications and Allergies Active Medications: Active Medications Al Hydroxide/Mg Hydroxide (Milk Of Magnesia Liq) 30 ml PO Q12H PRN PRN Reason: Mild Constipation Bisacodyl (Dulcolax Supp) 10 mg RECTAL DAILY PRN PRN Reason: SEVERE CONSITIPATION Bisacodyl (Dulcolax Ec) 5 mg PO DAILY [facility] Calcium Acetate (Phoslo) 1,334 mg PO TID [facility] Clonazepam (Klonopin) 1 mg PO HS [facility] Clonidine HCl (Catapres) 0.2 mg PO BID [facility] Pharmacy Profile Note (Vancomycin Consult Pharmacy) 0 mls @ 0 mls/hr OTHER UNSCH [facility] Piperacillin/Tazobactam/Dextrose (Zosyn 3.375 Gm Premix) 50 mls @ 100 mls/hr IV.SIG Q8H [facility] Last Infusion: 04/10/18 03:10 Dose: Infused Lactulose (Lactulose Liq) 30 ml PO DAILY PRN PRN Reason: SEVERE CONSITIPATION Lisinopril (Prinivil) 20 mg PO HS [facility] Metoprolol Tartrate (Lopressor) 100 mg PO BID [facility] Pantoprazole Sodium (Protonix) 20 mg PO BID [facility] Sennosides (Senokot) 17.2 mg PO Q12H PRN PRN Reason: Moderate Constipation Sevelamer Carbonate (Renvela) 1,600 mg PO TIDAC [facility] Temazepam (Restoril) 15 mg PO HS PRN PRN Reason: INSOMNIA Allergies Allergy/AdvReac Type Severity Reaction Status Date / Time nortriptyline Allergy Severe Hallucinati Verified 11/13/17 12:34 ons Home Medications Medication Instructions Recorded Confirmed Type bisacodyl 5 mg PO DAILY 04/10/18 04/10/18 History calcium acetate 1,334 mg PO TID 04/10/18 04/10/18 History clonazepam 1 mg PO HS 04/10/18 04/10/18 History clonidine HCl 0.2 mg PO BID 04/10/18 04/10/18 History lisinopril 20 mg PO HS 04/10/18 04/10/18 History metoprolol tartrate 100 mg PO BID 04/10/18 04/10/18 History omeprazole magnesium [Prilosec OTC] 20 mg PO BID 04/10/18 04/10/18 History sevelamer carbonate [Renvela] 2 tab PO TIDAC 04/10/18 04/10/18 History Exam Vital signs: Vital Signs 04/10/18 01:58 04/10/18 03:35 04/10/18 04:00 Temperature 101.2 F H 99.6 F Pulse Rate 105 H 103 H 96 H Respiratory Rate 16 20 18 Blood Pressure 114/58 L 105/45 L 116/52 L Pulse Oximetry 100 96 96 04/10/18 08:00 Temperature 98.4 F Pulse Rate 90 Respiratory Rate 16 Blood Pressure 125/58 L Pulse Oximetry 91 L Intake & Output 04/09/18 04/10/18 04/10/18 18:59 06:59 18:59 Intake Total 410 / 410 Balance 410 / 410 Weight 71.8 kg Intake: IV 50 / 50 Zosyn 3.375 GM Premix 50 ML @ 50 / 50 100 mls/hr IV.SIG Q8H [facility] Rx#: [id number] Oral 360 / 360 Other: # Voids 0 Date of Last Bowel Movement 04/09/18 Weight On Admission 71.8 kg - Constitutional no acute distress - Routine HEENT Exam Head: Present: normocephalic, atraumatic Eye: Present: conjunctivae pink ENT: Present: mucous membranes moist - Routine Neck Exam Present: supple - Routine Respiratory Exam Present: CTA bilaterally - Routine Cardiovascular Exam Present: RRR - Routine Abdominal Exam Present: soft, normoactive bowel sounds - Routine Extremities Exam Present: tenderness (Right elbow 80) - Routine Skin Exam Present: intact - Routine Neurological Exam Present: alert, oriented X3 Results - Lab Results 04/10/18 14:39 Assessment and Plan - Assessment (1) End stage renal disease on dialysis Code(s): N18.6 - End stage renal disease; Z99.2 - Dependence on renal dialysis Status: Acute (2) Hypertension Code(s): I10 - Essential (primary) hypertension Status: Acute (3) Pseudoaneurysm of distal brachial artery Code(s): I72.1 - Aneurysm of artery of upper extremity Status: Acute - Plan Patient to start his peritoneal dialysis this afternoon with midday exchange he will be back on his peritoneal dialysis at night will use 2.5% alternating with 1.5% continue to monitor his progress while in the hospital Follow cultures Vascular surgery is following and waiting for Doppler study, patient has interposition of basilic vein placed for pseudoaneurysm repair in 2017
[2018-04-10] MEDS: Pantoprazole Sodium 20 MG DR Tablet PO SCH ×2 (10:47→20:43)
[2018-04-10] MEDS: Metoprolol Tartrate 100 MG Tablet PO SCH ×2 (10:47→20:42)
--- NOTE | 2018-04-10 11:01 | P.PNIM ---
Subjective Interval history: 58-year-old male with a history of end-stage renal disease status post failed transplant, right upper extremity AV fistula infection, currently on peritoneal dialysis, who presents with acute onset of fever and chills around 7 PM yesterday evening. Patient notes warmth and redness of right arm over the past day. He denies any abdominal pain, sore throat, chest pain, shortness of breath , nausea, vomiting, lightheadedness, dizziness. Patient makes no urine. Patient did not received peritoneal dialysis last night. Patient also reports small subcentimeter lesions, one at the gluteal cleft, one on the scrotum which have been bothering him over the past few months, however no acute changes over the past few days. Patient presented to [facility], was found to have fever of 101 , tachycardia, blood cultures were performed, lactic acid within normal limits, white count 10.6. BUN 48, creatinine 16. Chest x-ray performed with no acute disease. I was contacted by [facility] to report that patient had refused admission to their hospital and wanted to be transferred to [place]. White blood cell count 10.6. BUN 48, creatinine 16. Chest x-ray performed and shows no acute disease. 8-[address] JOHN RIGHT UE US ORDERED FOLLOW UP ON RIGHT UE FISTULA INFECTION AM LABS DW RN AND PT Physical Exam Vital signs: Vital Signs 04/10/18 01:58 04/10/18 03:35 04/10/18 04:00 Temperature 101.2 F H 99.6 F Pulse Rate 105 H 103 H 96 H Respiratory Rate 16 20 18 Blood Pressure 114/58 L 105/45 L 116/52 L Pulse Oximetry 100 96 96 04/10/18 08:00 Temperature 98.4 F Pulse Rate 90 Respiratory Rate 16 Blood Pressure 125/58 L Pulse Oximetry 91 L Intake & Output 04/09/18 04/10/18 04/10/18 18:59 06:59 18:59 Intake Total 410 / 410 Balance 410 / 410 Weight 71.8 kg Intake: IV 50 / 50 Zosyn 3.375 GM Premix 50 ML @ 50 / 50 100 mls/hr IV.SIG Q8H [facility] Rx#: [id number] Oral 360 / 360 Other: # Voids 0 Date of Last Bowel Movement 04/09/18 Weight On Admission 71.8 kg Narrative: GENERAL: Patient sitting up in bed. Appears comfortable. Alert and oriented 3. SKIN: Warm and dry. Right upper extremity AV fistula with erythema from antecubital fossa to mid bicep. Warmth and mild tenderness to palpation. Patient has what can be described as a canker on the left side of scrotum subcentimeter, as well as similar lesion on gluteal cleft, with minimal surrounding erythema. HEAD: Atraumatic. Normocephalic. EYES: Pupils equal and round. No scleral icterus. No injection or drainage. ENT: No nasal bleeding or discharge. Mucous membranes pink and moist. NECK: Trachea midline. No JVD. CARDIOVASCULAR: Regular rate and rhythm. RESPIRATORY: No accessory muscle use. Clear to auscultation. Breath sounds equal bilaterally. GASTROINTESTINAL: Abdomen soft, non-tender, nondistended. Hepatic and splenic margins not palpable. Peritoneal dialysis catheter in place without any surrounding erythema. No abdominal tenderness MUSCULOSKELETAL: Extremities without clubbing, cyanosis, or edema. No obvious deformities. NEUROLOGICAL: Awake and alert. No obvious cranial nerve deficits. Motor grossly within normal limits. Five out of 5 muscle strength in the arms and legs. Normal speech. PSYCHIATRIC: Appropriate mood and affect; insight and judgment normal. Assessment and Plan - Plan Sepsis. Cellulitis of right upper extremity AV fistula. Acute. -Fever, tachycardia, right upper extremity cellulitis overlying AV fistula. Cultures from [facility] are pending Vancomycin and Zosyn = Lactate within normal limits. Do not suspect peritoneal fluid infection, and there is no peritoneal fluid to evaluate at this time. Consult vascular surgery. Consult infectious disease. End-stage renal disease on peritoneal dialysis Consults patient's obedience trainer, Dr. Adhikari. Hypertension. Blood pressure acceptable. Continue home medications Chancres of scrotum and gluteal cleft. Check RPR. Hopefully will improve with antibiotics. ID will be consulted for above. GERD. Chronic. Continue home medications. Code Status: full code Discussed Condition With: RN and patient Discharge Planning: Pending clearance by infectious disease as well as nephrology and vascular
[2018-04-10] MEDS: Calcium Acetate 667 MG Capsule PO SCH ×2 (17:20→18:42)
--- NOTE | 2018-04-10 20:40 | P.PNADD ---
Addendum to Inpatient Note Additional information: Pt seen around 1830 today full note to follow
--- NOTE | 2018-04-10 20:40 | P.CONID ---
History of Present Illness Service: ID Consult date: 04/10/18 Requesting Physician: Cale Berger Reason for Consult: fever, RUE cellulitis Primary Care Provider: Ijeoma Tuttle Family Provider: Ijeoma Tuttle Chief Complaint: R arm pain, cellulitis History of Present Illness: 58 yo male with ESRD on PD, previosly failed RUE AV fistula, complicated by pseudoaneusim sp repair by Dr Osborn in [facility] presented 1 day ago with fever up to 101, pain and redness of R forearm and creaqtinine of 18 Pt was started on abx and his fever protly resolved cont to have pain and swelling of RUE, but somewhat better blood clx drawn and pending On vsnco, zosyn Vanco givn on 04/10 US performed yday showed a patent graft Review of Systems All other systems reviewed negative except as stated in HPI PMFSH - History History Provided By: Patient - Medical History Medical History: Medical History (Last Reviewed 06/03/18 @ 10:52 by Candace Medley MD) Dialysis patient FH: cholecystectomy GERD (gastroesophageal reflux disease) Hypertension Leaky heart valve Melanoma of right side of neck Renal disease - Surgical History Surgical History: Surgical History (Last Reviewed 06/03/18 @ 10:52 by Candace Medley MD) H/O parathyroidectomy - Family History Family History: Family History (Last Reviewed 06/03/18 @ 10:52 by Candace Medley MD) Other No family history of cardiac disease - Social History I have reviewed the patient's Social History: Yes - Tobacco History Second Hand Smoke Exposure: No Tobacco Use In Past 30 Days: No Smoking Status: Former smoker Tobacco Type: Cigarettes - Alcohol History How Often Do You Have a Drink Containing Alcohol: Never - Substance Use History Substance History: No History of Abuse - Travel History Recent Travel in the [place] Within the Last 8 Weeks: No Recent Travel Out of the Country Within the Last 8 Weeks: No - Immunization History Tetanus Immunization: Unsure Hx Influenza Vaccine This Season: No Medications and Allergies Active Medications: Active Medications Al Hydroxide/Mg Hydroxide (Milk Of Magnesia Liq) 30 ml PO Q12H PRN PRN Reason: Mild Constipation Bisacodyl (Dulcolax Supp) 10 mg RECTAL DAILY PRN PRN Reason: SEVERE CONSITIPATION Bisacodyl (Dulcolax Ec) 5 mg PO DAILY [facility] Last Admin: 04/10/18 10:47 Dose: 5 mg Calcium Acetate (Phoslo) 1,334 mg PO TID [facility] Last Admin: 04/10/18 18:42 Dose: Not Given Clonazepam (Klonopin) 1 mg PO HS [facility] Clonidine HCl (Catapres) 0.2 mg PO BID [facility] Last Admin: 04/10/18 10:47 Dose: 0.2 mg Pharmacy Profile Note (Vancomycin Consult Pharmacy) 0 mls @ 0 mls/hr OTHER UNSCH [facility] Piperacillin/Tazobactam/Dextrose (Zosyn 3.375 Gm Premix) 50 mls @ 100 mls/hr IV.SIG Q8H [facility] Last Admin: 04/10/18 18:41 Dose: 100 mls/hr Lactulose (Lactulose Liq) 30 ml PO DAILY PRN PRN Reason: SEVERE CONSITIPATION Lisinopril (Prinivil) 20 mg PO HS [facility] Metoprolol Tartrate (Lopressor) 100 mg PO BID [facility] Last Admin: 04/10/18 10:47 Dose: 100 mg Pantoprazole Sodium (Protonix) 20 mg PO BID [facility] Last Admin: 04/10/18 10:47 Dose: 20 mg Sennosides (Senokot) 17.2 mg PO Q12H PRN PRN Reason: Moderate Constipation Sevelamer Carbonate (Renvela) 1,600 mg PO TIDAC [facility] Last Admin: 04/10/18 18:41 Dose: Not Given Temazepam (Restoril) 15 mg PO HS PRN PRN Reason: INSOMNIA Allergies Allergy/AdvReac Type Severity Reaction Status Date / Time nortriptyline Allergy Severe Hallucinati Verified 04/18/18 13:09 ons Home Medications Medication Instructions Recorded Confirmed Type bisacodyl 5 mg PO DAILY 04/10/18 04/18/18 History clonazepam 1 mg PO HS 04/10/18 04/18/18 History metoprolol tartrate 100 mg PO BID 04/10/18 04/18/18 History omeprazole magnesium [Prilosec OTC] 20 mg PO BID 04/10/18 04/18/18 History sevelamer carbonate [Renvela] 2 tab PO TIDAC 04/10/18 04/18/18 History calcium acetate 4 tab PO DIRECTED 08/08/18 08/10/18 History clonidine HCl 0.1 mg PO BID 04/16/18 04/18/18 History lisinopril 10 mg PO DAILY 04/16/18 04/18/18 History minoxidil 2.5 mg PO DAILY 04/16/18 04/18/18 History Exam Vital signs: Vital Signs 04/10/18 01:58 04/10/18 03:35 04/10/18 04:00 Temperature 101.2 F H 99.6 F Pulse Rate 105 H 103 H 96 H Respiratory Rate 16 20 18 Blood Pressure 114/58 L 105/45 L 116/52 L Pulse Oximetry 100 96 96 04/10/18 08:00 04/10/18 12:00 04/10/18 16:00 Temperature 98.4 F 98.7 F 98.8 F Pulse Rate 90 82 78 Respiratory Rate 16 16 17 Blood Pressure 125/58 L 100/54 L 105/51 L Pulse Oximetry 91 L 98 99 Intake & Output 04/10/18 04/10/18 04/11/18 06:59 18:59 06:59 Intake Total 410 / 410 650 / 650 Output Total 0 / 0 Balance 410 / 410 650 / 650 Weight 71.8 kg Intake: IV 50 / 50 50 / 50 Zosyn 3.375 GM Premix 50 ML @ 50 / 50 50 / 50 100 mls/hr IV.SIG Q8H [facility] Rx#: [id number] Oral 360 / 360 600 / 600 Output: Urine 0 / 0 Other: # Voids 0 Date of Last Bowel Movement 04/09/18 04/09/18 # Bowel Movements 0 Weight On Admission 71.8 kg - Constitutional no acute distress, average body habitus - Routine HEENT Exam Head: Present: normocephalic, atraumatic Eye: Present: EOMI, PERRL ENT: Present: mucous membranes moist, oropharynx clear - Routine Neck Exam Present: supple, full ROM - Routine Respiratory Exam Present: decreased breath sounds, CTA bilaterally - Routine Cardiovascular Exam Present: RRR, S1, S2 Comments: no murmurs rubs gallops well perfused perifery - Routine Abdominal Exam Present: soft, normoactive bowel sounds Comments: not tender not disteded no organomegaly no masses Tenkoff cath in place - site OK - Routine Extremities Exam Present: full ROM, pulses intact Comments: no cynosis no cludbbing no edema Status lcalis RUE: Mltiple scars on RUE, well healed mild edema and erythea of proximal forearm tender to touch no fluctuance, no crepitus - Routine Skin Exam Present: intact, dry, warm - Routine Neurological Exam Present: alert, oriented X3, moving all extremities, vision grossly intact, hearing grossly intact, normal speech - Routine Psychiatric Exam Present: normal affect, normal thought process, cooperative Results - Labs CBC & Chem 7: 04/12/18 09:34 04/12/18 09:34 Labs: Laboratory Results - last 24 hr 04/10/18 14:39 Creatinine 18.02 H* Estimated GFR 3 L - Imaging Upper Extremity Ultrasound 04/10/18 00:00 CONCLUSION: 1. Patient graft as above. 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 Assessment and Plan - Plan RUE AV fistula, complicated by pseudoaneusim sp repair Fever, RUE cellulits aw with vascular graft, ? AV fistula infection ESRD/PD cont vancomycin fu cultures will dw Dr Osborn
[2018-04-10] MEDS: clonazePAM 1 MG Tablet PO SCH (20:42)
[2018-04-10] MEDS: Lisinopril 20 MG Tablet PO SCH (20:42)
--- NOTE | 2018-04-10 23:05 | US ---
EXAM DATE: 04/10/2018 10:51 PM EDT AGE/SEX: 58 years / Male INDICATIONS: Check for fluid collection. Right upper extremity brachial artery interposition in Jun 2017 CLINICAL DATA: This is the patient's initial encounter. Patient reports that signs and symptoms have been present for 2 days and indicates a pain score of 3/10. MEDICAL/SURGICAL HISTORY: Gastroesophageal reflux disease. Hypertension. Peritoneal dialysis. Leaky heart valve. Melanoma right side neck. End stage renal disease. Cholecystectomy. Right upper e xtremity brachial artery interposition in Jun 2017. Parathyroidectomy. Failed renal transplant. COMPARISON: No prior exams available for comparison. FINDINGS: Right upper extremity evaluated for fluid collection and patency. There is a known occlusion of the r ight [place] brachial artery from proximal to distal. There is a graft placed from the patent portion of the brachial artery to the bifurcation of the radial and ulnar arteries. Graft appears patent. No abnormal fluid collections. CONCLUSION: 1. Patient graft as above. 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 Electronically signed by: Carmine Aguiar MD 04/10/2018 11:03 PM EDT
[2018-04-11] MEDS: Piperacil/Tazo 3.375 GM Premix 50 ML IV.SIG SCH ×2 (03:05→10:29)
--- NOTE | 2018-04-11 08:08 | P.PNVS ---
Subjective Subjective/Hospital Course: Pt notes persistent arm pain - not worse. No hand pain. Duplex reviewed - no fluid around bypass (autogenous) and no apparent stenosis Objective Vital Signs / I&O: Vital Signs 04/10/18 12:00 04/10/18 16:00 04/10/18 20:00 Temperature 98.7 F 98.8 F 98.3 F Pulse Rate 82 78 72 Respiratory Rate 16 17 17 Blood Pressure 100/54 L 105/51 L 131/61 Pulse Oximetry 98 99 99 04/11/18 00:00 04/11/18 04:00 Temperature 98.3 F 98.1 F Pulse Rate 69 73 Respiratory Rate 16 15 Blood Pressure 89/56 L 126/60 Pulse Oximetry 98 100 Intake & Output 04/10/18 04/11/18 04/11/18 18:59 06:59 18:59 Intake Total 650 / 650 460 / 460 Output Total 0 / 0 Balance 650 / 650 460 / 460 Weight 71.6 kg Intake: IV 50 / 50 100 / 100 Zosyn 3.375 GM Premix 50 ML @ 50 / 50 100 / 100 100 mls/hr IV.SIG Q8H [facility] Rx#: [id number] Oral 600 / 600 360 / 360 Output: Urine 0 / 0 Other: Date of Last Bowel Movement 04/09/18 # Bowel Movements 0 1 Physical Exam: R UE incisions well healed. No fluctuance, no erythema palpable radial pulse Laboratory Results - last 24 hr 04/10/18 14:39 Creatinine 18.02 H* Estimated GFR 3 L Impressions Upper Extremity Ultrasound 04/10/18 00:00 CONCLUSION: 1. Patient graft as above. 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 Assessment and Plan - Assessment (1) Pseudoaneurysm of distal brachial artery Code(s): I72.1 - Aneurysm of artery of upper extremity Status: Acute - Plan looks great, arm pain from trauma, not related to bypass has f/u in my clinic at the end of the month already scheduled Cornel Osborn MD FACS RPVI senior research project manager [facility] - Heart and Vascular Surgery at [facility] [phone]
[2018-04-11 08:55] VITALS: O2SAT 98
--- NOTE | 2018-04-11 09:57 | P.PNIM ---
Subjective Interval history: 58-year-old male with a history of end-stage renal disease status post failed transplant, right upper extremity AV fistula infection, currently on peritoneal dialysis, who presents with acute onset of fever and chills around 7 PM yesterday evening. Patient notes warmth and redness of right arm over the past day. He denies any abdominal pain, sore throat, chest pain, shortness of breath , nausea, vomiting, lightheadedness, dizziness. Patient makes no urine. Patient did not received peritoneal dialysis last night. Patient also reports small subcentimeter lesions, one at the gluteal cleft, one on the scrotum which have been bothering him over the past few months, however no acute changes over the past few days. Patient presented to [facility], was found to have fever of 101 , tachycardia, blood cultures were performed, lactic acid within normal limits, white count 10.6. BUN 48, creatinine 16. Chest x-ray performed with no acute disease. I was contacted by [facility] to report that patient had refused admission to their hospital and wanted to be transferred to [place]. White blood cell count 10.6. BUN 48, creatinine 16. Chest x-ray performed and shows no acute disease. 8-[address] JOHN RIGHT UE US ORDERED FOLLOW UP ON RIGHT UE FISTULA INFECTION AM LABS [facility] RN AND PT 8-3 FOLLOW UP RIGHT UE CELLULITIS CLEARED BY DR JOHN AM LABS NOT CLEARED BY ID AWAIT CLEARANCE [facility] RN AND PT Physical Exam Vital signs: Vital Signs 04/10/18 12:00 04/10/18 16:00 04/10/18 20:00 Temperature 98.7 F 98.8 F 98.3 F Pulse Rate 82 78 72 Respiratory Rate 16 17 17 Blood Pressure 100/54 L 105/51 L 131/61 Pulse Oximetry 98 99 99 04/11/18 00:00 04/11/18 04:00 04/11/18 08:00 Temperature 98.3 F 98.1 F 98.1 F Pulse Rate 69 73 71 Respiratory Rate 16 15 18 Blood Pressure 89/56 L 126/60 115/55 L Pulse Oximetry 98 100 98 Intake & Output 04/10/18 04/11/18 04/11/18 18:59 06:59 18:59 Intake Total 650 / 650 460 / 460 Output Total 0 / 0 Balance 650 / 650 460 / 460 Weight 71.6 kg Intake: IV 50 / 50 100 / 100 Zosyn 3.375 GM Premix 50 ML @ 50 / 50 100 / 100 100 mls/hr IV.SIG Q8H [facility] Rx#: [id number] Oral 600 / 600 360 / 360 Output: Urine 0 / 0 Other: Date of Last Bowel Movement 04/09/18 # Bowel Movements 0 1 Narrative: GENERAL: Patient sitting up in bed. Appears comfortable. Alert and oriented 3. SKIN: Warm and dry. Right upper extremity AV fistula with erythema from antecubital fossa to mid bicep. Warmth and mild tenderness to palpation. Patient has what can be described as a canker on the left side of scrotum subcentimeter, as well as similar lesion on gluteal cleft, with minimal surrounding erythema. HEAD: Atraumatic. Normocephalic. EYES: Pupils equal and round. No scleral icterus. No injection or drainage. ENT: No nasal bleeding or discharge. Mucous membranes pink and moist. NECK: Trachea midline. No JVD. CARDIOVASCULAR: Regular rate and rhythm. RESPIRATORY: No accessory muscle use. Clear to auscultation. Breath sounds equal bilaterally. GASTROINTESTINAL: Abdomen soft, non-tender, nondistended. Hepatic and splenic margins not palpable. Peritoneal dialysis catheter in place without any surrounding erythema. No abdominal tenderness MUSCULOSKELETAL: Extremities without clubbing, cyanosis, or edema. No obvious deformities. NEUROLOGICAL: Awake and alert. No obvious cranial nerve deficits. Motor grossly within normal limits. Five out of 5 muscle strength in the arms and legs. Normal speech. PSYCHIATRIC: Appropriate mood and affect; insight and judgment normal. Results - Labs CBC & Chem 7: 04/10/18 14:39 Laboratory Results - last 24 hr 04/10/18 14:39 Creatinine 18.02 H* Estimated GFR 3 L - Imaging Impressions Upper Extremity Ultrasound 04/10/18 00:00 CONCLUSION: 1. Patient graft as above. 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 Assessment and Plan - Plan Sepsis. Cellulitis of right upper extremity AV fistula. Acute. -Fever, tachycardia, right upper extremity cellulitis overlying AV fistula. Cultures from [facility] are pending Vancomycin and Zosyn = Lactate within normal limits. Do not suspect peritoneal fluid infection, and there is no peritoneal fluid to evaluate at this time. Consult vascular surgery. Consult infectious disease. CLEARED BY VASCULAR NOT CLEARED BY ID End-stage renal disease on peritoneal dialysis Consults patient's treasury accountant, Dr. Adhikari. Hypertension. Blood pressure acceptable. Continue home medications Chancres of scrotum and gluteal cleft. Check RPR. Hopefully will improve with antibiotics. ID will be consulted for above. GERD. Chronic. Continue home medications. LABS ARE ALL PENDING STILL NOT CLEARED BY ID FOR DC YET Code Status: Full code Discussed Condition With: RN and patient Discharge Planning: Pending clearance by infectious disease as well as nephrology Has been cleared by vascular already
--- NOTE | 2018-04-11 10:04 | P.PNNP ---
Subjective Interval history: Patient doing better right arm is not as painful, Physical Exam Vital signs: Vital Signs 04/10/18 12:00 04/10/18 16:00 04/10/18 20:00 Temperature 98.7 F 98.8 F 98.3 F Pulse Rate 82 78 72 Respiratory Rate 16 17 17 Blood Pressure 100/54 L 105/51 L 131/61 Pulse Oximetry 98 99 99 04/11/18 00:00 04/11/18 04:00 04/11/18 08:00 Temperature 98.3 F 98.1 F 98.1 F Pulse Rate 69 73 71 Respiratory Rate 16 15 18 Blood Pressure 89/56 L 126/60 115/55 L Pulse Oximetry 98 100 98 Intake & Output 04/10/18 04/11/18 04/11/18 18:59 06:59 18:59 Intake Total 650 / 650 460 / 460 Output Total 0 / 0 Balance 650 / 650 460 / 460 Weight 71.6 kg Intake: IV 50 / 50 100 / 100 Zosyn 3.375 GM Premix 50 ML @ 50 / 50 100 / 100 100 mls/hr IV.SIG Q8H [facility] Rx#: [id number] Oral 600 / 600 360 / 360 Output: Urine 0 / 0 Other: Date of Last Bowel Movement 04/09/18 # Bowel Movements 0 1 - Constitutional no acute distress - Routine HEENT Exam Head: Present: normocephalic Eye: Present: EOMI - Routine Respiratory Exam Present: CTA bilaterally - Routine Cardiovascular Exam Present: RRR - Routine Abdominal Exam Present: soft, normoactive bowel sounds - Routine Extremities Exam Present: pulses intact Assessment and Plan - Assessment (1) End stage renal disease on dialysis Code(s): N18.6 - End stage renal disease; Z99.2 - Dependence on renal dialysis Status: Acute (2) Hypertension Code(s): I10 - Essential (primary) hypertension Status: Acute (3) Pseudoaneurysm of distal brachial artery Code(s): I72.1 - Aneurysm of artery of upper extremity Status: Acute - Plan Patient doing better on peritoneal dialysis continue outpatient treatment Vascular surgery has cleared him to be discharged Nephrology also okay with the discharge plan
[2018-04-11] MEDS: Calcium Acetate 667 MG Capsule PO SCH ×3 (10:25→17:53)
[2018-04-11] MEDS: Metoprolol Tartrate 100 MG Tablet PO SCH ×2 (10:28→22:11)
[2018-04-11] MEDS: Pantoprazole Sodium 20 MG DR Tablet PO SCH ×2 (10:28→22:11)
[2018-04-11 10:44] LABS: Baso % (Auto) 0.6 % (0.0-2.0); Eos # (Auto) 0.2 th/mm3 (0.0-0.4); Eos % (Auto) 2.9 % (0.0-4.0); Hematocrit 26.5 % (39.0-51.0); Hemoglobin 9.1 gm/dL (13.0-17.0); Lymph % (Auto) 13.9 % (9.0-44.0); Mean Corpuscular HGB Conc 34.3 % (32.0-36.0); Mean Corpuscular Hemoglobin 32.2 pg (27.0-34.0); Mean Corpuscular Volume 93.8 fL (80.0-100.0); Mono # (Auto) 0.8 th/mm3 (0.0-0.9); Mono % (Auto) 10.7 % (0.0-8.0); Neut # (Auto) 5.1 th/mm3 (1.8-7.7); Neut % (Auto) 71.9 % (16.0-70.0); Platelet Count 170 th/mm3 (150-450); Red Blood Count 2.82 mil/mm3 (4.50-5.90); Red Cell Distribution Width 14.1 % (11.6-17.2); White Blood Count 7.1 th/mm3 (4.0-11.0)
[2018-04-11 10:46] LABS: INR 1.1 Ratio; Prothrombin Time 11.2 sec (9.8-11.6)
[2018-04-11 11:04] LABS: Alanine Aminotransferase 11 U/L (12-78); Albumin 2.6 g/dL (3.4-5.0); Anion Gap 15 meq/L (5-15); Aspartate Aminotransferase 9 U/L (15-37); Blood Urea Nitrogen 46 mg/dL (7-18); Calcium 8.8 mg/dL (8.5-10.1); Carbon Dioxide 25.1 meq/L (21.0-32.0); Chloride 95 meq/L (98-107); Glomerular Filtration Rate 3 mL/min (>89); Glucose,Random 88 mg/dL (74-106); Magnesium 2.2 mg/dL (1.5-2.5); Sodium 135 meq/L (136-145)
[2018-04-11 11:06] LABS: Potassium 2.9 meq/L (3.5-5.1)
[2018-04-11 11:12] LABS: Alkaline Phosphatase 34 U/L (45-117); Free T4 (Free Thyroxine) 1.01 ng/dL (0.76-1.46); Phosphorus 5.3 mg/dL (2.5-4.9); Total Protein 6.2 g/dL (6.4-8.2); Vancomycin,Random 26.9 Comment
[2018-04-11] MEDS ORDERED: Potassium Chloride 25 MEQ Effervescent Tablet PO ONE (17:00)
[2018-04-11] MEDS: Piperacil/Tazo 2.25 GM Premix 50 ML IV.SIG SCH (18:25)
[2018-04-11] MEDS: clonazePAM 1 MG Tablet PO SCH (22:11)
[2018-04-11] MEDS: Lisinopril 20 MG Tablet PO SCH (22:11)
[2018-04-12] MEDS: Piperacil/Tazo 2.25 GM Premix 50 ML IV.SIG SCH ×2 (03:32→10:51)
--- NOTE | 2018-04-12 09:15 | P.PN ---
Subjective Interval history: Patient seen and examined this morning, their vitals are stable and the patient is afebrile. No complaint or concerns, wants to know when he can go home. Physical Exam Vital signs: Vital Signs 04/11/18 12:00 04/11/18 16:00 04/11/18 20:00 Temperature 98.4 F 98.4 F 97.8 F Pulse Rate 81 81 70 Respiratory Rate 16 16 16 Blood Pressure 103/57 L 128/79 133/83 Pulse Oximetry 100 98 99 04/12/18 00:00 04/12/18 04:00 04/12/18 08:00 Temperature 97.9 F 98.0 F 97.5 F L Pulse Rate 68 57 L 61 Respiratory Rate 14 14 18 Blood Pressure 125/74 98/64 L 109/66 Pulse Oximetry 98 97 100 Intake & Output 04/11/18 04/12/18 04/12/18 18:59 06:59 18:59 Intake Total 840 / 840 50 / 50 Output Total 225 / 225 Balance 615 / 615 50 / 50 Intake: IV 300 / 300 50 / 50 Zosyn 2.25 GM Premix 50 ML @ 50 / 50 100 mls/hr IV.SIG Q8H [facility] Rx#: [id number] Zosyn 3.375 GM Premix 50 ML @ 50 / 50 100 mls/hr IV.SIG Q8H [facility] Rx#: [id number] Oral 540 / 540 Output: Urine 225 / 225 Other: # Voids 2 Date of Last Bowel Movement 04/11/18 # Bowel Movements 1 Narrative: GENERAL: Well-appearing, no acute distress SKIN: Warm and dry. RT UE AV fistula with very minimal erythema. HEAD: Normocephalic. EYES: No scleral icterus. No injection or drainage. NECK: Supple, trachea midline. No JVD or lymphadenopathy. CARDIOVASCULAR: Regular rate and rhythm without murmurs, gallops, or rubs. RESPIRATORY: Breath sounds equal bilaterally. No accessory muscle use. GASTROINTESTINAL: Abdomen soft, non-tender, nondistended. MUSCULOSKELETAL: No cyanosis, or edema. Results - Labs CBC & Chem 7: 04/12/18 09:34 04/11/18 10:02 Laboratory Results - last 24 hr 04/10/18 04/11/18 04/11/18 17:37 10:02 10:02 WBC 7.1 RBC 2.82 L Hgb 9.1 L Hct 26.5 L MCV 93.8 MCH 32.2 MCHC 34.3 RDW 14.1 Plt Count 170 MPV 8.0 Neut % (Auto) 71.9 H Lymph % (Auto) 13.9 [place] % (Auto) 10.7 H Eos % (Auto) 2.9 Baso % (Auto) 0.6 Neut # (Auto) 5.1 Lymph # (Auto) 1.0 [place] # (Auto) 0.8 Eos # (Auto) 0.2 Baso # (Auto) 0.0 WBC Differential . Differential Comment Auto diff final PT INR Sodium 135 L Potassium 2.9 L* Chloride 95 L Carbon Dioxide 25.1 Anion Gap 15 BUN 46 H Creatinine 17.46 H* Estimated GFR 3 L Random Glucose 88 Hemoglobin A1c Calcium 8.8 Phosphorus 5.3 H Magnesium 2.2 Total Bilirubin 0.6 AST 9 L ALT 11 L Alkaline Phosphatase 34 L Total Protein 6.2 L Albumin 2.6 L TSH 4.180 H Free T4 1.01 Random Vancomycin 26.9 RPR Nonreactive 04/11/18 04/11/18 10:02 10:02 WBC RBC Hgb Hct MCV MCH MCHC RDW Plt Count MPV Neut % (Auto) Lymph % (Auto) [place] % (Auto) Eos % (Auto) Baso % (Auto) Neut # (Auto) Lymph # (Auto) [place] # (Auto) Eos # (Auto) Baso # (Auto) WBC Differential Differential Comment PT 11.2 INR 1.1 Sodium Potassium Chloride Carbon Dioxide Anion Gap BUN Creatinine Estimated GFR Random Glucose Hemoglobin A1c 5.0 Calcium Phosphorus Magnesium Total Bilirubin AST ALT Alkaline Phosphatase Total Protein Albumin TSH Free T4 Random Vancomycin RPR Microbiology 04/10/18 02:42 Blood - Peripheral Aerobic Blood Culture - Preliminary No growth in 1 day 04/10/18 02:42 Blood - Peripheral Anaerobic Blood Culture - Preliminary No growth in 1 day 04/10/18 02:48 Blood - Peripheral Aerobic Blood Culture - Preliminary No growth in 1 day 04/10/18 02:48 Blood - Peripheral Anaerobic Blood Culture - Preliminary No growth in 1 day - Imaging Impressions Upper Extremity Ultrasound 04/10/18 00:00 CONCLUSION: 1. Patient graft as above. 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 Assessment and Plan - Plan 58-year-old male who presented to [place] [facility] with sepsis due to right upper extremity fistula infection. 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
[2018-04-12] MEDS: Pantoprazole Sodium 20 MG DR Tablet PO SCH (09:41)
[2018-04-12] MEDS: Metoprolol Tartrate 100 MG Tablet PO SCH (09:41)
[2018-04-12] MEDS: Calcium Acetate 667 MG Capsule PO SCH ×2 (09:42→12:45)
[2018-04-12 10:25] LABS: Baso % (Auto) 0.9 % (0.0-2.0); Eos # (Auto) 0.2 th/mm3 (0.0-0.4); Eos % (Auto) 4.5 % (0.0-4.0); Hematocrit 27.1 % (39.0-51.0); Hemoglobin 9.4 gm/dL (13.0-17.0); Lymph # (Auto) 1.3 th/mm3 (1.0-4.8); Lymph % (Auto) 26.2 % (9.0-44.0); Mean Corpuscular HGB Conc 34.8 % (32.0-36.0); Mean Corpuscular Hemoglobin 32.8 pg (27.0-34.0); Mean Corpuscular Volume 94.4 fL (80.0-100.0); Mean Platelet Volume 8.7 fL (7.0-11.0); Mono # (Auto) 0.7 th/mm3 (0.0-0.9); Mono % (Auto) 14.7 % (0.0-8.0); Neut # (Auto) 2.6 th/mm3 (1.8-7.7); Neut % (Auto) 53.7 % (16.0-70.0); Platelet Count 162 th/mm3 (150-450); Red Blood Count 2.88 mil/mm3 (4.50-5.90); Red Cell Distribution Width 14.1 % (11.6-17.2); White Blood Count 4.8 th/mm3 (4.0-11.0)
[2018-04-12 10:56] LABS: Albumin 2.4 g/dL (3.4-5.0); Anion Gap 16 meq/L (5-15); Aspartate Aminotransferase 12 U/L (15-37); Blood Urea Nitrogen 41 mg/dL (7-18); Carbon Dioxide 25.4 meq/L (21.0-32.0); Chloride 95 meq/L (98-107); Glomerular Filtration Rate 3 mL/min (>89); Glucose,Random 80 mg/dL (74-106); Potassium 3.2 meq/L (3.5-5.1); Sodium 136 meq/L (136-145)
[2018-04-12 11:02] LABS: Alanine Aminotransferase 12 U/L (12-78); Alkaline Phosphatase 33 U/L (45-117); Phosphorus 5.5 mg/dL (2.5-4.9); Total Protein 6.2 g/dL (6.4-8.2); Vancomycin,Random 23.2 Comment
--- NOTE | 2018-04-12 13:01 | P.PNID ---
Subjective Remarks: pt co on edema and pain inR forearm, but states it is improving no fever Antibiotics: vanco zosyn Allergies/Adverse Reactions: Allergies nortriptyline Allergy (Severe, Verified 11/13/17 12:34) Hallucinations Objective Vital Signs 04/11/18 16:00 04/11/18 20:00 04/12/18 00:00 Temperature 98.4 F 97.8 F 97.9 F Pulse Rate 81 70 68 Respiratory Rate 16 16 14 Blood Pressure 128/79 133/83 125/74 Pulse Oximetry 98 99 98 04/12/18 04:00 04/12/18 08:00 Temperature 98.0 F 97.5 F L Pulse Rate 57 L 61 Respiratory Rate 14 18 Blood Pressure 98/64 L 109/66 Pulse Oximetry 97 100 Intake & Output 04/11/18 04/12/18 04/12/18 18:59 06:59 18:59 Intake Total 840 / 840 50 / 50 100 / 100 Output Total 225 / 225 Balance 615 / 615 50 / 50 100 / 100 Intake: IV 300 / 300 50 / 50 100 / 100 Zosyn 2.25 GM Premix 50 ML @ 50 / 50 100 / 100 100 mls/hr IV.SIG Q8H [facility] Rx#: [id number] Zosyn 3.375 GM Premix 50 ML @ 50 / 50 100 mls/hr IV.SIG Q8H [facility] Rx#: [id number] Oral 540 / 540 Output: Urine 225 / 225 Other: # Voids 2 Date of Last Bowel Movement 04/11/18 04/11/18 # Bowel Movements 1 04/10/18 02:42 Blood - Peripheral Aerobic Blood Culture - Preliminary No growth in 2 days 04/10/18 02:42 Blood - Peripheral Anaerobic Blood Culture - Preliminary No growth in 2 days 04/10/18 02:48 Blood - Peripheral Aerobic Blood Culture - Preliminary No growth in 2 days 04/10/18 02:48 Blood - Peripheral Anaerobic Blood Culture - Preliminary No growth in 2 days Lab - Hematology Results 04/11/18 04/12/18 10:02 09:34 WBC 7.1 4.8 RBC 2.82 L 2.88 L Hgb 9.1 L 9.4 L Hct 26.5 L 27.1 L MCV 93.8 94.4 MCH 32.2 32.8 MCHC 34.3 34.8 RDW 14.1 14.1 Plt Count 170 162 MPV 8.0 8.7 Neut % (Auto) 71.9 H 53.7 Lymph % (Auto) 13.9 26.2 [place] % (Auto) 10.7 H 14.7 H Eos % (Auto) 2.9 4.5 H Baso % (Auto) 0.6 0.9 Neut # (Auto) 5.1 2.6 Lymph # (Auto) 1.0 1.3 [place] # (Auto) 0.8 0.7 Eos # (Auto) 0.2 0.2 Baso # (Auto) 0.0 0.0 WBC Differential . . Differential Comment Auto diff final Auto diff final Lab - Chemistry Results 04/10/18 04/11/18 04/11/18 14:39 10:02 10:02 Sodium 135 L Potassium 2.9 L* Chloride 95 L Carbon Dioxide 25.1 Anion Gap 15 BUN 46 H Creatinine 18.02 H* 17.46 H* Estimated GFR 3 L 3 L Random Glucose 88 Hemoglobin A1c 5.0 Calcium 8.8 Phosphorus 5.3 H Magnesium 2.2 Total Bilirubin 0.6 AST 9 L ALT 11 L Alkaline Phosphatase 34 L Total Protein 6.2 L Albumin 2.6 L TSH 4.180 H Free T4 1.01 04/12/18 09:34 Sodium 136 Potassium 3.2 L Chloride 95 L Carbon Dioxide 25.4 Anion Gap 16 H BUN 41 H Creatinine 16.43 H* D Estimated GFR 3 L Random Glucose 80 Hemoglobin A1c Calcium 9.0 Phosphorus 5.5 H Magnesium 2.0 Total Bilirubin 0.5 AST 12 L ALT 12 Alkaline Phosphatase 33 L Total Protein 6.2 L Albumin 2.4 L TSH Free T4 Imaging: ITS Impressions Upper Extremity Ultrasound 04/10/18 00:00 CONCLUSION: 1. Patient graft as above. 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 Physical Exam: GENERAL: NAD SKIN: Warm and dry. HEAD: Normocephalic. EYES: No scleral icterus. No injection or drainage. NECK: Supple, trachea midline. No JVD or lymphadenopathy. CARDIOVASCULAR: Regular rate and rhythm without murmurs, gallops, or rubs. RESPIRATORY: Breath sounds equal bilaterally. No accessory muscle use. GASTROINTESTINAL: Abdomen soft, non-tender, nondistended. MUSCULOSKELETAL: No cyanosis, Mild edema of prox R forearm no fluctuance no palpable cords BACK: Nontender without obvious deformity. No CVA tenderness. Assessment and Plan - Plan Sepsis on admission - resolved Taking into account clinical presntationa and radiological findings pt's presentation is most consistent with uncomplicated cellulitis and does not require surgical or prolonged abx treatment -Fever, RUE cellulits aw with brachial artery occlusion pt has no graft and no prosthetic material in RUE and no fluid collection On vancomycin - level is 23 ESRD/PD fu blood clx untill final cont vancomycin: repeat 1 more dose a week since the last one that will give him 2 weeks of tx OK to dc home with fu with Dr Osborn
--- NOTE | 2018-04-12 15:41 | P.DCO ---
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 [] May leave port accessed during therapy. [] May leave peripheral site accessed for duration of therapy. [x] If patient has SOB or respiratory distress, check oxygen saturation. If less than 90% or clinical signs of respiratory distress, administer oxygen at 2 L/min. via nasal cannula and notify physician. [x] Anaphylaxis/Reaction orders: * Stop infusion. * Keep IV line open with saline flush. * Notify physician. * Monitor vital signs every 15 minutes until symptoms resolve. * Check Oxygen saturation; Oxygen at 2 L/min. via nasal cannula if less than 90% or clinical signs of respiratory distress. * Administer diphenhydramine (Benadryl) 25 mg IV STAT, (unless patient has received as pre-med). May repeat once, if necessary. * Solu-Cortef 250 mg IVP over 30-60 seconds, use 100 mg vials for each dissolution. * Epinephrine (1mg/1 ml) 0.3 mg subcutaneously or IVP now with any signs of respiratory distress. * Check with physician for new additional pre-med orders if patient is re- challenged or re-treated. [x] May remove PICC line when treatment complete, after confirming with Physician. [x] If the patient is admitted to the hospital, the ED, or transferred via [facility] , complete transfer form including medication reconciliation order sheet. Weekly Labs: Vancomycin Trough (on Wednesday 04/18) Allergies nortriptyline Allergy (Severe, Verified 11/13/17 12:34) Hallucinations
--- NOTE | 2018-04-12 19:24 | P.DS ---
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 Patient notes warmth and redness of right arm over the past day. He denies any abdominal pain, sore throat, chest pain, shortness of breath , nausea, vomiting, lightheadedness, dizziness. Patient makes no urine. Patient did not received peritoneal dialysis last night. Patient also reports small subcentimeter lesions, one at the gluteal cleft, one on the scrotum which have been bothering him over the past few months, however no acute changes over the past few days. Patient presented to [facility], was found to have fever of 101 , tachycardia, blood cultures were performed, lactic acid within normal limits, white count 10.6. BUN 48, creatinine 16. Chest x-ray performed with no acute disease. I was contacted by [facility] to report that patient had refused admission to their hospital and wanted to be transferred to [place]. White blood cell count 10.6. BUN 48, creatinine 16. Chest x-ray performed and shows no acute disease. DS: Diagnosis - Discharge Diagnosis (1) Cellulitis and abscess of other specified site Status: Acute DS: Summary Hospital Course: Patient admitted with Right UE fistula infection. Placed on broad spectrum antibiotics . Seen and evaluated by Dr. Medley ID. Patient labs and clinical status improved. By 04/12 he had reached maximum benefit from inpatient hospitalization. Was discharged with one dose of IV vancomycin arranged by Dr. Medley - Time Spent with Patient Total time spent providing and/or coordinating discharge services: Greater than 30 minutes - Quality: VTE Deep Vein Thrombosis/Pulmonary Embolism Present on Admission: No Exam Vital signs: Vital Signs 04/11/18 20:00 04/12/18 00:00 04/12/18 04:00 Temperature 97.8 F 97.9 F 98.0 F Pulse Rate 70 68 57 L Respiratory Rate 16 14 14 Blood Pressure 133/83 125/74 98/64 L Pulse Oximetry 99 98 97 04/12/18 08:00 04/12/18 12:00 Temperature 97.5 F L 97.2 F L Pulse Rate 61 66 Respiratory Rate 18 17 Blood Pressure 109/66 124/74 Pulse Oximetry 100 98 Intake & Output 04/12/18 04/12/18 04/13/18 06:59 18:59 06:59 Intake Total 50 / 50 100 / 100 Balance 50 / 50 100 / 100 Weight 71.6 kg Intake: IV 50 / 50 100 / 100 Zosyn 2.25 GM Premix 50 ML @ 50 / 50 100 / 100 100 mls/hr IV.SIG Q8H [facility] Rx#: [id number] Other: Date of Last Bowel Movement 04/11/18 Results Procedures completed during hospitalization: NA Labs on day of discharge: Labs from last 24 hours 04/12/18 04/12/18 09:34 09:34 WBC 4.8 RBC 2.88 L Hgb 9.4 L Hct 27.1 L MCV 94.4 MCH 32.8 MCHC 34.8 RDW 14.1 Plt Count 162 MPV 8.7 Neut % (Auto) 53.7 Lymph % (Auto) 26.2 [place] % (Auto) 14.7 H Eos % (Auto) 4.5 H Baso % (Auto) 0.9 Neut # (Auto) 2.6 Lymph # (Auto) 1.3 [place] # (Auto) 0.7 Eos # (Auto) 0.2 Baso # (Auto) 0.0 WBC Differential . Differential Comment Auto diff final Sodium 136 Potassium 3.2 L Chloride 95 L Carbon Dioxide 25.4 Anion Gap 16 H BUN 41 H Creatinine 16.43 H* D Estimated GFR 3 L Random Glucose 80 Calcium 9.0 Phosphorus 5.5 H Magnesium 2.0 Total Bilirubin 0.5 AST 12 L ALT 12 Alkaline Phosphatase 33 L Total Protein 6.2 L Albumin 2.4 L Random Vancomycin 23.2 Preliminary micro results at discharge 04/10/18 02:42 Aerobic Blood Culture - Preliminary Blood - Peripheral No growth in 2 days Anaerobic Blood Culture - Preliminary No growth in 2 days 04/10/18 02:48 Aerobic Blood Culture - Preliminary Blood - Peripheral No growth in 2 days Anaerobic Blood Culture - Preliminary No growth in 2 days - Impressions ITS Impressions Upper Extremity Ultrasound 04/10/18 00:00 CONCLUSION: 1. Patient graft as above. 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 Discharge Plan - Discharge Disposition Patient Disposition: Discharge Home - Discharge Condition Condition: Stable - Discharge Order Discharge Orders: Discharge Order (Routine); Ordered 04/12/18 Ordered By: Ceci Guzmán Nephrology Clear for Discharge (Routine); Ordered 04/11/18 Ordered By: Sandy Adhikari Vascular Surgery Clear for Discharge (Routine); Ordered 04/11/18 Ordered By: Cornel Osborn - Discharge Details Anticipated Discharge Date: 04/12/18 - Physicians Team Primary Care Provider: Ijeoma Tuttle Attending Provider: Ceci Guzmán Other Providers: Candace Medley MD ; Sandy Adhikari MD ; Cornel Osborn MD
--- NOTE | 2018-04-12 23:38 | P.PNNP ---
Subjective Interval history: Patient seen in AM, clinically same, not in distress. Physical Exam Vital signs: Vital Signs 04/12/18 00:00 04/12/18 04:00 04/12/18 08:00 Temperature 97.9 F 98.0 F 97.5 F L Pulse Rate 68 57 L 61 Respiratory Rate 14 14 18 Blood Pressure 125/74 98/64 L 109/66 Pulse Oximetry 98 97 100 04/12/18 12:00 Temperature 97.2 F L Pulse Rate 66 Respiratory Rate 17 Blood Pressure 124/74 Pulse Oximetry 98 Intake & Output 04/12/18 04/12/18 04/13/18 06:59 18:59 06:59 Intake Total 50 / 50 100 / 100 Balance 50 / 50 100 / 100 Weight 71.6 kg Intake: IV 50 / 50 100 / 100 Zosyn 2.25 GM Premix 50 ML @ 50 / 50 100 / 100 100 mls/hr IV.SIG Q8H [facility] Rx#: [id number] Other: Date of Last Bowel Movement 04/11/18 Narrative: GENERAL: Well-appearing, no acute distress SKIN: Warm and dry. RT UE AV fistula with very minimal erythema. HEAD: Normocephalic. EYES: No scleral icterus. No injection or drainage. NECK: Supple, trachea midline. No JVD or lymphadenopathy. CARDIOVASCULAR: Regular rate and rhythm without murmurs, gallops, or rubs. RESPIRATORY: Breath sounds equal bilaterally. No accessory muscle use. GASTROINTESTINAL: Abdomen soft, non-tender, nondistended. MUSCULOSKELETAL: No cyanosis, or edema. Assessment and Plan - Assessment (1) End stage renal disease on dialysis Code(s): N18.6 - End stage renal disease; Z99.2 - Dependence on renal dialysis Status: Acute (2) Hypertension Code(s): I10 - Essential (primary) hypertension Status: Acute (3) Pseudoaneurysm of distal brachial artery Code(s): I72.1 - Aneurysm of artery of upper extremity Status: Acute - Plan Patient doing better on peritoneal dialysis continue outpatient treatment Vascular surgery has cleared him to be discharged Patient is for discharge. To continue PD at home. To follow with Dr. Adhikari.
[2018-04-15 18:01] VITALS: BP 124/74; PULSE 66; RESP 17; TEMP 97.2
== END 2018-04-12 16:39 | disposition home or self-care (01) ==
LOC: NEPC 01:45 → NEDA 02:02 → H7ONC 04:00 → N07 04-11 14:40
PROVIDERS: ADMIT Family Medicine; ATTEND Family Medicine